=== PATIENT | female | born 1990 | race Caucasian/White ===

== ENCOUNTER 2020-06-20 21:28 | Inpatient (IN) | payer BC, SELFPAY ==
[~2020-06-20] VITALS: Ht 157.5 cm; Wt 154.2 kg
[2020-06-20] MEDS ORDERED: AZITHROMYCIN 500MG/NS 250 ML 250 ML IV ONE (21:45)
[2020-06-20] MEDS ORDERED: DEXAMETHASONE SOD PHOS 10 MG/1 ML VIAL IV ONE (21:45)
[2020-06-20] MEDS ORDERED: ACETAMINOPHEN 325 MG TAB PO ONE (22:00)
[2020-06-20 22:42] LABS: BASOPHILS % 0.2 % (0.0-1.0); HEMATOCRIT 41.6 % (34.2-44.1); HEMOGLOBIN 13.8 g/dL (12.0-16.0); LYMPHOCYTES # (AUTO) 1.1 (1.0-3.2); LYMPHOCYTES % 24.9 % (18.0-39.1); MEAN CORPUSCULAR HEMOGLOBIN 29.9 pg (28-32); MEAN CORPUSCULAR HGB CONC 33.2 g/dL (31-35); MEAN CORPUSCULAR VOLUME 90.2 fL (81-99); MONOCYTES # (AUTO) 0.4 (0.2-0.8); MONOCYTES % 9.4 % (4.4-11.3); NEUTROPHILS # (AUTO) 2.9 (2.1-6.9); NEUTROPHILS % 65.3 % (38.7-80.0); PLATELET COUNT 158 x10e3/uL (140-360); RED BLOOD COUNT 4.61 x10e6/uL (3.6-5.1); RED CELL DISTRIBUTION WIDTH 12.8 % (11.7-14.4)
[2020-06-20 23:09] LABS: ALANINE AMINOTRANSFERASE 158 IU/L (0-55); ALBUMIN 3.6 g/dL (3.5-5.0); ALBUMIN/GLOBULIN RATIO 0.9 (0.8-2.0); ALKALINE PHOSPHATASE 83 IU/L (40-150); ANION GAP 14.6 mmol/L (8-16); BLOOD UREA NITROGEN 9 mg/dL (7-26); BUN/CREATININE RATIO 12 (6-25); CARBON DIOXIDE 28 mmol/L (22-29); CHLORIDE 103 mmol/L (98-107); CREATININE, SERUM 0.74 mg/dL (0.57-1.11); EST GLOMERULAR FILTRATION RATE > 60 ML/MIN (60-); GLUCOSE 104 mg/dL (74-118); POTASSIUM 3.6 mmol/L (3.5-5.1); SODIUM 142 mmol/L (136-145)
[2020-06-20 23:16] LABS: CREATINE KINASE MB 0.5 ng/mL (0-5.0)
[2020-06-21] VITALS (8 sets, daily range): BP systolic 119–149; BP diastolic 70–87
[2020-06-21] MEDS ORDERED: ONDANSETRON HCL INJ 2MG/ML 2ML 2 MG/ML VIAL IV PRN (02:45)
[2020-06-21 05:09] LABS: CLARITY,URINE CLEAR (CLEAR); KETONES,URINE NEGATIVE (NEGATIVE); LEUKOCYTE ESTERASE ,URINE NEGATIVE (NEGATIVE); NITRITE,URINE NEGATIVE (NEGATIVE); PROTEIN,URINE DIPSTICK 2+ (NEGATIVE)
[2020-06-21 05:10] LABS: BACTERIA,URINE MODERATE /HPF; COLOR,URINE AMBER (YELLOW); EPITHELIAL CELLS,URINE FEW /LPF; URINE UROBILINOGEN 1 mg/dL (0.2 - 1); WBC,URINE (MAN) 0-5 /HPF (0-5)
[2020-06-21] MEDS ORDERED: GUAIFENESIN/CODEINE 10 ML CUP PO PRN (07:45)
[2020-06-21] MEDS ORDERED: ZOLPIDEM TARTRATE 5 MG TAB PO PRN (07:45)
[2020-06-21 08:34] LABS: HEMATOCRIT 42.3 % (34.2-44.1); LYMPHOCYTES # (AUTO) 0.7 (1.0-3.2); LYMPHOCYTES % 23.6 % (18.0-39.1); MEAN CORPUSCULAR HEMOGLOBIN 29.9 pg (28-32); MEAN CORPUSCULAR HGB CONC 33.1 g/dL (31-35); MEAN CORPUSCULAR VOLUME 90.2 fL (81-99); MONOCYTES # (AUTO) 0.2 (0.2-0.8); MONOCYTES % 7.2 % (4.4-11.3); NEUTROPHILS % 68.9 % (38.7-80.0); PLATELET COUNT 151 x10e3/uL (140-360); RED BLOOD COUNT 4.69 x10e6/uL (3.6-5.1); RED CELL DISTRIBUTION WIDTH 12.6 % (11.7-14.4)
[2020-06-21 08:52] LABS: ALANINE AMINOTRANSFERASE 143 IU/L (0-55); ALBUMIN 3.3 g/dL (3.5-5.0); ALBUMIN/GLOBULIN RATIO 0.8 (0.8-2.0); ALKALINE PHOSPHATASE 79 IU/L (40-150); ANION GAP 15.9 mmol/L (8-16); BLOOD UREA NITROGEN 9 mg/dL (7-26); BUN/CREATININE RATIO 14 (6-25); CALCIUM 7.9 mg/dL (8.4-10.2); CARBON DIOXIDE 26 mmol/L (22-29); CHLORIDE 104 mmol/L (98-107); CREATININE, SERUM 0.66 mg/dL (0.57-1.11); EST GLOMERULAR FILTRATION RATE > 60 ML/MIN (60-); GLUCOSE 153 mg/dL (74-118); POTASSIUM 3.9 mmol/L (3.5-5.1); SODIUM 142 mmol/L (136-145)
[2020-06-21] MEDS ORDERED: SODIUM CHLORIDE 0.9% 50ML 50 ML ONE (09:10)
[2020-06-21 09:12] LABS: CREATINE KINASE 399 IU/L (29-168)
[2020-06-21] MEDS: AZITHROMYCIN 500MG/NS 250 ML 250 ML IV SCH (09:38)
[2020-06-21] MEDS: ASCORBIC ACID 500 MG TAB PO SCH ×2 (09:38→18:11)
[2020-06-21] MEDS: ENOXAPARIN INJ 80 MG/0.8 ML SYR SC SCH ×2 (09:39→18:11)
[2020-06-21] MEDS: ZINC SULFATE 220 MG CAP PO SCH (09:39)
[2020-06-21] MEDS ORDERED: CEFTRIAXONE SOD 1 GM/50 ML BAG IV SCH (11:15)
[2020-06-21] MEDS ORDERED: HYDRALAZINE HCL 20 MG/ML VIAL IV PRN (11:15)
[2020-06-21] MEDS ORDERED: MELATONIN 5 MG TABLET PO PRN (11:15)
[2020-06-21] MEDS ORDERED: REMDESIVIR 200MG/NS 100ML 200 MG in SODIUM CHLORIDE 0.9% 100 ML 100 ML IV ONE (14:00)
[2020-06-21] MEDS ORDERED: DEXAMETHASONE SOD PHOS 10 MG/1 ML VIAL IV SCH (17:00)
[2020-06-21] MEDS: FAMOTIDINE 20 MG TAB PO SCH (18:11)
[2020-06-21 21:40] LABS: CREATINE KINASE MB 1.6 ng/mL (0-5.0)
[2020-06-22] VITALS (15 sets, daily range): BP systolic 111–137; BP diastolic 71–102
[2020-06-22 05:21] LABS: HEMATOCRIT 40.4 % (34.2-44.1); HEMOGLOBIN 13.4 g/dL (12.0-16.0); LYMPHOCYTES # (AUTO) 0.9 (1.0-3.2); LYMPHOCYTES % 14.8 % (18.0-39.1); MEAN CORPUSCULAR HEMOGLOBIN 29.8 pg (28-32); MEAN CORPUSCULAR HGB CONC 33.2 g/dL (31-35); MONOCYTES # (AUTO) 0.4 (0.2-0.8); MONOCYTES % 7.4 % (4.4-11.3); NEUTROPHILS # (AUTO) 4.6 (2.1-6.9); NEUTROPHILS % 77.5 % (38.7-80.0); PLATELET COUNT 215 x10e3/uL (140-360); RED BLOOD COUNT 4.49 x10e6/uL (3.6-5.1); RED CELL DISTRIBUTION WIDTH 12.7 % (11.7-14.4)
[2020-06-22 05:42] LABS: ALANINE AMINOTRANSFERASE 110 IU/L (0-55); ALBUMIN 3.3 g/dL (3.5-5.0); ALBUMIN/GLOBULIN RATIO 0.9 (0.8-2.0); ALKALINE PHOSPHATASE 76 IU/L (40-150); ANION GAP 13.9 mmol/L (8-16); BLOOD UREA NITROGEN 16 mg/dL (7-26); BUN/CREATININE RATIO 22 (6-25); CALCIUM 8.2 mg/dL (8.4-10.2); CARBON DIOXIDE 29 mmol/L (22-29); CHLORIDE 103 mmol/L (98-107); CREATININE, SERUM 0.74 mg/dL (0.57-1.11); EST GLOMERULAR FILTRATION RATE > 60 ML/MIN (60-); GLUCOSE 148 mg/dL (74-118); POTASSIUM 3.9 mmol/L (3.5-5.1); SODIUM 142 mmol/L (136-145)
[2020-06-22 06:37] LABS: CREATINE KINASE 811 IU/L (29-168)
[2020-06-22] MEDS: FAMOTIDINE 20 MG TAB PO SCH ×2 (07:40→18:10)
[2020-06-22] MEDS: ACETAMINOPHEN 325 MG TAB PO PRN (07:40)
[2020-06-22] MEDS: ZINC SULFATE 220 MG CAP PO SCH (09:58)
[2020-06-22] MEDS: AZITHROMYCIN 500MG/NS 250 ML 250 ML IV SCH (09:58)
[2020-06-22] MEDS: CHOLECALCIFEROL 400 UNIT TAB PO SCH (09:58)
[2020-06-22] MEDS: ASCORBIC ACID 500 MG TAB PO SCH ×2 (09:58→18:10)
[2020-06-22] MEDS: ENOXAPARIN INJ 80 MG/0.8 ML SYR SC SCH ×2 (09:58→18:10)
[2020-06-22] MEDS ORDERED: DEXAMETHASONE SOD PHOS 10 MG/1 ML VIAL IV SCH (17:00)
[2020-06-22] MEDS: DEXAMETHASONE SOD PHOS 10 MG/1 ML VIAL IV SCH (18:10)
[2020-06-22] MEDS ORDERED: DEXMEDETOMIDINE 200MCG/NS 50ML 50 ML IV SCH ×2 (20:45→23:30)
[2020-06-22] MEDS: REMDESIVIR 100MG/NS 100ML 100 MG in SODIUM CHLORIDE 0.9% 100 ML 100 ML IV SCH (20:58)
[2020-06-22] MEDS: DEXMEDETOMIDINE 200MCG/NS 50ML 50 ML IV PRN (23:00)
[2020-06-23] VITALS (25 sets, daily range): BP systolic 91–119; BP diastolic 49–88
[2020-06-23] MEDS: DEXMEDETOMIDINE 200MCG/NS 50ML 50 ML IV PRN ×4 (02:32→21:20)
[2020-06-23 07:02] LABS: BASOPHILS % 0.2 % (0.0-1.0); HEMATOCRIT 39.7 % (34.2-44.1); LYMPHOCYTES # (AUTO) 0.8 (1.0-3.2); LYMPHOCYTES % 15.1 % (18.0-39.1); MEAN CORPUSCULAR HEMOGLOBIN 29.8 pg (28-32); MEAN CORPUSCULAR HGB CONC 32.7 g/dL (31-35); MEAN CORPUSCULAR VOLUME 91.1 fL (81-99); MONOCYTES # (AUTO) 0.5 (0.2-0.8); MONOCYTES % 10.5 % (4.4-11.3); NEUTROPHILS # (AUTO) 3.7 (2.1-6.9); NEUTROPHILS % 73.4 % (38.7-80.0); PLATELET COUNT 223 x10e3/uL (140-360); RED BLOOD COUNT 4.36 x10e6/uL (3.6-5.1); RED CELL DISTRIBUTION WIDTH 12.7 % (11.7-14.4)
[2020-06-23 07:24] LABS: ALANINE AMINOTRANSFERASE 128 IU/L (0-55); ALBUMIN 3.2 g/dL (3.5-5.0); ALBUMIN/GLOBULIN RATIO 0.9 (0.8-2.0); ALKALINE PHOSPHATASE 77 IU/L (40-150); ANION GAP 14.1 mmol/L (8-16); BLOOD UREA NITROGEN 24 mg/dL (7-26); BUN/CREATININE RATIO 33 (6-25); CALCIUM 8.2 mg/dL (8.4-10.2); CARBON DIOXIDE 30 mmol/L (22-29); CHLORIDE 104 mmol/L (98-107); CREATININE, SERUM 0.72 mg/dL (0.57-1.11); EST GLOMERULAR FILTRATION RATE > 60 ML/MIN (60-); GLUCOSE 129 mg/dL (74-118); POTASSIUM 4.1 mmol/L (3.5-5.1); SODIUM 144 mmol/L (136-145)
[2020-06-23] MEDS: CHOLECALCIFEROL 400 UNIT TAB PO SCH (08:57)
[2020-06-23] MEDS: ENOXAPARIN INJ 80 MG/0.8 ML SYR SC SCH ×2 (08:57→18:16)
[2020-06-23] MEDS: ZINC SULFATE 220 MG CAP PO SCH (08:57)
[2020-06-23] MEDS: ASCORBIC ACID 500 MG TAB PO SCH ×2 (08:57→17:00)
[2020-06-23] MEDS: FAMOTIDINE 20 MG TAB PO SCH ×2 (08:57→16:30)
[2020-06-23] MEDS ORDERED: LORAZEPAM INJ 2 MG/ML VIAL IV ONE (12:30)
[2020-06-23] MEDS: AZITHROMYCIN 500MG/NS 250 ML 250 ML IV SCH (12:41)
[2020-06-23] MEDS: DEXAMETHASONE SOD PHOS 10 MG/1 ML VIAL IV SCH (18:16)
[2020-06-23] MEDS: REMDESIVIR 100MG/NS 100ML 100 MG in SODIUM CHLORIDE 0.9% 100 ML 100 ML IV SCH (18:16)
[2020-06-24] VITALS (25 sets, daily range): BP systolic 100–157; BP diastolic 67–96
[2020-06-24 06:14] LABS: BASOPHILS % 0.2 % (0.0-1.0); HEMATOCRIT 39.7 % (34.2-44.1); LYMPHOCYTES # (AUTO) 0.7 (1.0-3.2); LYMPHOCYTES % 10.4 % (18.0-39.1); MEAN CORPUSCULAR HGB CONC 32.7 g/dL (31-35); MEAN CORPUSCULAR VOLUME 91.7 fL (81-99); MONOCYTES # (AUTO) 0.6 (0.2-0.8); MONOCYTES % 8.7 % (4.4-11.3); NEUTROPHILS # (AUTO) 5.2 (2.1-6.9); NEUTROPHILS % 79.3 % (38.7-80.0); PLATELET COUNT 248 x10e3/uL (140-360); RED BLOOD COUNT 4.33 x10e6/uL (3.6-5.1); RED CELL DISTRIBUTION WIDTH 12.4 % (11.7-14.4)
[2020-06-24 06:44] LABS: ALANINE AMINOTRANSFERASE 126 IU/L (0-55); ALBUMIN/GLOBULIN RATIO 0.8 (0.8-2.0); ALKALINE PHOSPHATASE 84 IU/L (40-150); BLOOD UREA NITROGEN 24 mg/dL (7-26); BUN/CREATININE RATIO 35 (6-25); CALCIUM 7.8 mg/dL (8.4-10.2); CARBON DIOXIDE 29 mmol/L (22-29); CHLORIDE 103 mmol/L (98-107); CREATININE, SERUM 0.68 mg/dL (0.57-1.11); EST GLOMERULAR FILTRATION RATE > 60 ML/MIN (60-); GLUCOSE 132 mg/dL (74-118); SODIUM 142 mmol/L (136-145)
[2020-06-24] MEDS: FAMOTIDINE 20 MG TAB PO SCH ×2 (07:30→16:24)
[2020-06-24] MEDS: ASCORBIC ACID 500 MG TAB PO SCH ×2 (07:49→16:24)
[2020-06-24] MEDS: ZINC SULFATE 220 MG CAP PO SCH (07:49)
[2020-06-24] MEDS: CHOLECALCIFEROL 400 UNIT TAB PO SCH (07:49)
[2020-06-24] MEDS: AZITHROMYCIN 500MG/NS 250 ML 250 ML IV SCH (10:35)
[2020-06-24] MEDS: ENOXAPARIN INJ 80 MG/0.8 ML SYR SC SCH ×2 (10:35→18:06)
[2020-06-24] MEDS: DEXAMETHASONE SOD PHOS 10 MG/1 ML VIAL IV SCH (18:06)
[2020-06-24] MEDS: REMDESIVIR 100MG/NS 100ML 100 MG in SODIUM CHLORIDE 0.9% 100 ML 100 ML IV SCH (18:06)
[2020-06-25] VITALS (25 sets, daily range): BP systolic 128–171; BP diastolic 60–84
[2020-06-25] MEDS: FAMOTIDINE 20 MG TAB PO SCH ×2 (07:56→16:54)
[2020-06-25] MEDS: ENOXAPARIN INJ 80 MG/0.8 ML SYR SC SCH ×2 (07:57→20:03)
[2020-06-25] MEDS: ASCORBIC ACID 500 MG TAB PO SCH ×2 (07:57→16:55)
[2020-06-25] MEDS: CHOLECALCIFEROL 400 UNIT TAB PO SCH (07:57)
[2020-06-25] MEDS: ZINC SULFATE 220 MG CAP PO SCH (07:57)
[2020-06-25] MEDS: DEXAMETHASONE SOD PHOS 10 MG/1 ML VIAL IV SCH (16:54)
[2020-06-25] MEDS: REMDESIVIR 100MG/NS 100ML 100 MG in SODIUM CHLORIDE 0.9% 100 ML 100 ML IV SCH (16:54)
[2020-06-25] MEDS: CENTRAL TPN FORMULA 1 BAG IV SCH (20:03)
[2020-06-26] VITALS (20 sets, daily range): BP systolic 100–150; BP diastolic 60–86
[2020-06-26 06:25] LABS: BASOPHILS % 0.1 % (0.0-1.0); EOSINOPHILS % 0.3 % (0.0-6.0); HEMATOCRIT 37.2 % (34.2-44.1); HEMOGLOBIN 12.3 g/dL (12.0-16.0); LYMPHOCYTES # (AUTO) 0.9 (1.0-3.2); LYMPHOCYTES % 7.3 % (18.0-39.1); MEAN CORPUSCULAR HEMOGLOBIN 29.8 pg (28-32); MEAN CORPUSCULAR HGB CONC 33.1 g/dL (31-35); MEAN CORPUSCULAR VOLUME 90.1 fL (81-99); MONOCYTES # (AUTO) 0.5 (0.2-0.8); MONOCYTES % 3.9 % (4.4-11.3); NEUTROPHILS # (AUTO) 10.1 (2.1-6.9); PLATELET COUNT 304 x10e3/uL (140-360); RED BLOOD COUNT 4.13 x10e6/uL (3.6-5.1); RED CELL DISTRIBUTION WIDTH 12.2 % (11.7-14.4)
[2020-06-26 06:51] LABS: ALANINE AMINOTRANSFERASE 66 IU/L (0-55); ALBUMIN 2.6 g/dL (3.5-5.0); ALBUMIN/GLOBULIN RATIO 0.7 (0.8-2.0); ALKALINE PHOSPHATASE 69 IU/L (40-150); ANION GAP 11.7 mmol/L (8-16); BLOOD UREA NITROGEN 22 mg/dL (7-26); BUN/CREATININE RATIO 35 (6-25); CARBON DIOXIDE 30 mmol/L (22-29); CHLORIDE 104 mmol/L (98-107); CREATININE, SERUM 0.62 mg/dL (0.57-1.11); EST GLOMERULAR FILTRATION RATE > 60 ML/MIN (60-); GLUCOSE 170 mg/dL (74-118); POTASSIUM 3.7 mmol/L (3.5-5.1); SODIUM 142 mmol/L (136-145)
[2020-06-26] MEDS: CHOLECALCIFEROL 400 UNIT TAB PO SCH (09:00)
[2020-06-26] MEDS: ASCORBIC ACID 500 MG TAB PO SCH ×2 (09:00→16:01)
[2020-06-26] MEDS: ZINC SULFATE 220 MG CAP PO SCH (09:22)
[2020-06-26] MEDS: ENOXAPARIN INJ 80 MG/0.8 ML SYR SC SCH ×2 (11:00→20:02)
[2020-06-26] MEDS: FAMOTIDINE 20 MG TAB PO SCH ×2 (11:00→15:30)
[2020-06-26] MEDS: DEXAMETHASONE SOD PHOS 10 MG/1 ML VIAL IV SCH (16:01)
[2020-06-26] MEDS: FENTANYL 2000MCG/NS 250 250 ML IV SCH (16:02)
[2020-06-26] MEDS: MIDAZOLAM HCL 5MG/ML 10ML VIAL 100 ML IV SCH (16:03)
[2020-06-26 16:29] LABS: ABG HCO3 30 mmol/L (22-26); ABG PCO2 47 mmHg (35-45); ABG PO2 73 mmHg (80-105); ABG TCO2 31
[2020-06-26] MEDS: ROCURONIUM BROMIDE 1,250 MG in SODIUM CHLORIDE 0.9% 250ML 125 ML IV SCH (20:01)
[2020-06-26] MEDS: CENTRAL TPN FORMULA 1 BAG IV SCH (20:02)
[2020-06-27] VITALS (13 sets, daily range): BP systolic 124–152; BP diastolic 65–79
[2020-06-27] MEDS: FAMOTIDINE 20 MG TAB PO SCH ×2 (07:30→18:45)
[2020-06-27] MEDS: ENOXAPARIN INJ 80 MG/0.8 ML SYR SC SCH ×2 (08:20→20:13)
[2020-06-27] MEDS: ASCORBIC ACID 500 MG TAB PO SCH ×2 (08:21→16:15)
[2020-06-27] MEDS: CHOLECALCIFEROL 400 UNIT TAB PO SCH (08:21)
[2020-06-27] MEDS: ZINC SULFATE 220 MG CAP PO SCH (08:21)
[2020-06-27 08:52] LABS: ABG HCO3 29 mmol/L (22-26); ABG PCO2 42 mmHg (35-45); ABG PH 7.45 (7.35-7.45); ABG PO2 178 mmHg (80-105); ABG TCO2 31
[2020-06-27] MEDS ORDERED: CENTRAL TPN FORMULA 1 BAG IV SCH (12:15)
[2020-06-27] MEDS ORDERED: FENTANYL 2,000 MCG/250 ML BAG ONE (13:01)
[2020-06-27] MEDS ORDERED: MIDAZOLAM HCL 5MG/ML 10ML VIAL 100 ML BAG IV ONE (13:01)
[2020-06-27 17:00] LABS: ABG HCO3 28 mmol/L (22-26); ABG PCO2 39 mmHg (35-45); ABG PH 7.47 (7.35-7.45); ABG PO2 94 mmHg (80-105); ABG TCO2 29
[2020-06-27] MEDS: DEXAMETHASONE SOD PHOS 10 MG/1 ML VIAL IV SCH (18:45)
[2020-06-27] MEDS: ROCURONIUM BROMIDE 1,250 MG in SODIUM CHLORIDE 0.9% 250ML 125 ML IV SCH (20:13)
[2020-06-27] MEDS: MIDAZOLAM HCL 5MG/ML 10ML VIAL 100 ML IV SCH (21:42)
[2020-06-27] MEDS: FENTANYL 2000MCG/NS 250 250 ML IV SCH (21:43)
[2020-06-28] VITALS (14 sets, daily range): BP systolic 127–156; BP diastolic 63–87
[2020-06-28 05:46] LABS: BASOPHILS % 0.3 % (0.0-1.0); EOSINOPHILS # (AUTO) 0.1 (0.0-0.4); EOSINOPHILS % 1.2 % (0.0-6.0); HEMATOCRIT 37.5 % (34.2-44.1); HEMOGLOBIN 12.2 g/dL (12.0-16.0); LYMPHOCYTES # (AUTO) 1.6 (1.0-3.2); MEAN CORPUSCULAR HEMOGLOBIN 29.7 pg (28-32); MEAN CORPUSCULAR HGB CONC 32.5 g/dL (31-35); MEAN CORPUSCULAR VOLUME 91.2 fL (81-99); MONOCYTES # (AUTO) 0.7 (0.2-0.8); MONOCYTES % 6.2 % (4.4-11.3); NEUTROPHILS # (AUTO) 8.2 (2.1-6.9); PLATELET COUNT 364 x10e3/uL (140-360); RED BLOOD COUNT 4.11 x10e6/uL (3.6-5.1); RED CELL DISTRIBUTION WIDTH 12.6 % (11.7-14.4)
[2020-06-28 06:10] LABS: ALANINE AMINOTRANSFERASE 53 IU/L (0-55); ALBUMIN 2.4 g/dL (3.5-5.0); ALBUMIN/GLOBULIN RATIO 0.6 (0.8-2.0); ALKALINE PHOSPHATASE 61 IU/L (40-150); ANION GAP 14.6 mmol/L (8-16); BLOOD UREA NITROGEN 26 mg/dL (7-26); BUN/CREATININE RATIO 42 (6-25); CALCIUM 7.9 mg/dL (8.4-10.2); CARBON DIOXIDE 25 mmol/L (22-29); CHLORIDE 111 mmol/L (98-107); CREATININE, SERUM 0.62 mg/dL (0.57-1.11); EST GLOMERULAR FILTRATION RATE > 60 ML/MIN (60-); GLUCOSE 104 mg/dL (74-118); POTASSIUM 3.6 mmol/L (3.5-5.1); SODIUM 147 mmol/L (136-145)
[2020-06-28] MEDS: CHOLECALCIFEROL 400 UNIT TAB PO SCH (07:57)
[2020-06-28] MEDS: FAMOTIDINE 20 MG TAB PO SCH ×2 (07:57→17:42)
[2020-06-28] MEDS: ENOXAPARIN INJ 80 MG/0.8 ML SYR SC SCH ×2 (07:57→21:02)
[2020-06-28] MEDS: ZINC SULFATE 220 MG CAP PO SCH (07:57)
[2020-06-28] MEDS: ASCORBIC ACID 500 MG TAB PO SCH ×2 (07:57→17:42)
[2020-06-28 09:13] LABS: ABG HCO3 27 mmol/L (22-26); ABG PCO2 46 mmHg (35-45); ABG PH 7.38 (7.35-7.45); ABG PO2 91 mmHg (80-105); ABG TCO2 29
[2020-06-28] MEDS ORDERED: DEXTROSE 50% SYRINGE 50 ML IV PRN (09:15)
[2020-06-28] MEDS: MIDAZOLAM HCL 5MG/ML 10ML VIAL 100 ML IV SCH ×2 (12:30→21:18)
[2020-06-28] MEDS: INSULIN REGULAR, HUMAN 100 UNIT/1 ML 3ML VIAL SQ SCH ×3 (13:08→21:00)
[2020-06-28] MEDS: DEXAMETHASONE SOD PHOS 10 MG/1 ML VIAL IV SCH (17:42)
[2020-06-28] MEDS: ROCURONIUM BROMIDE 1,250 MG in SODIUM CHLORIDE 0.9% 250ML 125 ML IV SCH (18:00)
[2020-06-28] MEDS: FENTANYL 2000MCG/NS 250 250 ML IV SCH (19:10)
[2020-06-28] MEDS ORDERED: VECURONIUM BROMIDE FOR INJ 20 MG VIAL ONE (19:25)
[2020-06-28] MEDS ORDERED: MIDAZOLAM HCL 2 MG/2 ML VIAL ONE (19:25)
[2020-06-28] MEDS ORDERED: ETOMIDATE 2 MG/ML 10 ML INJ IV ONE (19:25)
[2020-06-28] MEDS ORDERED: WATER STERILE 10 ML VIAL ONE (19:25)
[2020-06-29] VITALS (25 sets, daily range): BP systolic 106–152; BP diastolic 56–77
[2020-06-29] MEDS: ACETAMINOPHEN 325 MG TAB PO PRN (00:06)
[2020-06-29] MEDS: FENTANYL 2000MCG/NS 250 250 ML IV SCH ×2 (02:31→22:21)
[2020-06-29] MEDS: MIDAZOLAM HCL 5MG/ML 10ML VIAL 100 ML IV SCH ×2 (02:33→22:22)
[2020-06-29] MEDS: ROCURONIUM BROMIDE 1,250 MG in SODIUM CHLORIDE 0.9% 250ML 125 ML IV SCH (02:35)
[2020-06-29 06:02] LABS: BASOPHILS % 0.1 % (0.0-1.0); EOSINOPHILS % 0.1 % (0.0-6.0); HEMATOCRIT 33.7 % (34.2-44.1); HEMOGLOBIN 10.9 g/dL (12.0-16.0); LYMPHOCYTES # (AUTO) 0.8 (1.0-3.2); LYMPHOCYTES % 5.5 % (18.0-39.1); MEAN CORPUSCULAR HGB CONC 32.3 g/dL (31-35); MEAN CORPUSCULAR VOLUME 92.8 fL (81-99); MONOCYTES % 6.9 % (4.4-11.3); NEUTROPHILS # (AUTO) 11.7 (2.1-6.9); NEUTROPHILS % 84.4 % (38.7-80.0); PLATELET COUNT 322 x10e3/uL (140-360); RED BLOOD COUNT 3.63 x10e6/uL (3.6-5.1); RED CELL DISTRIBUTION WIDTH 12.8 % (11.7-14.4)
[2020-06-29 06:23] LABS: ALANINE AMINOTRANSFERASE 68 IU/L (0-55); ALBUMIN 2.2 g/dL (3.5-5.0); ALBUMIN/GLOBULIN RATIO 0.6 (0.8-2.0); ALKALINE PHOSPHATASE 59 IU/L (40-150); ANION GAP 13.1 mmol/L (8-16); BLOOD UREA NITROGEN 22 mg/dL (7-26); BUN/CREATININE RATIO 37 (6-25); CALCIUM 7.8 mg/dL (8.4-10.2); CARBON DIOXIDE 28 mmol/L (22-29); CHLORIDE 107 mmol/L (98-107); CREATININE, SERUM 0.59 mg/dL (0.57-1.11); EST GLOMERULAR FILTRATION RATE > 60 ML/MIN (60-); GLUCOSE 116 mg/dL (74-118); POTASSIUM 4.1 mmol/L (3.5-5.1); SODIUM 144 mmol/L (136-145)
[2020-06-29] MEDS: INSULIN REGULAR, HUMAN 100 UNIT/1 ML 3ML VIAL SQ SCH ×4 (07:30→21:09)
[2020-06-29] MEDS: FAMOTIDINE 20 MG TAB PO SCH ×2 (07:46→18:03)
[2020-06-29] MEDS: ZINC SULFATE 220 MG CAP PO SCH (07:47)
[2020-06-29] MEDS: ENOXAPARIN INJ 80 MG/0.8 ML SYR SC SCH ×2 (07:47→21:08)
[2020-06-29] MEDS: CHOLECALCIFEROL 400 UNIT TAB PO SCH (07:47)
[2020-06-29] MEDS: ASCORBIC ACID 500 MG TAB PO SCH ×2 (07:47→18:03)
[2020-06-29 10:01] LABS: ABG HCO3 30 mmol/L (22-26); ABG PCO2 56 mmHg (35-45); ABG PH 7.35 (7.35-7.45); ABG PO2 87 mmHg (80-105); ABG TCO2 30
[2020-06-29] MEDS: FUROSEMIDE INJ 10 MG/ML 4 ML VIAL IV SCH ×2 (12:00→21:08)
[2020-06-29] MEDS: ALBUMIN 25% 25GM 100ML 0.25 GM/ML BTL IV SCH ×2 (12:00→21:08)
[2020-06-29] MEDS: DEXAMETHASONE SOD PHOS 10 MG/1 ML VIAL IV SCH (16:46)
[2020-06-30] VITALS (27 sets, daily range): BP systolic 85–165; BP diastolic 40–86
[2020-06-30] MEDS: FENTANYL 2000MCG/NS 250 250 ML IV SCH (04:39)
[2020-06-30 04:40] LABS: BASOPHILS % 0.2 % (0.0-1.0); EOSINOPHILS % 0.1 % (0.0-6.0); HEMATOCRIT 33.3 % (34.2-44.1); LYMPHOCYTES % 8.2 % (18.0-39.1); MEAN CORPUSCULAR HEMOGLOBIN 29.9 pg (28-32); MEAN CORPUSCULAR VOLUME 90.5 fL (81-99); MONOCYTES # (AUTO) 1.1 (0.2-0.8); MONOCYTES % 8.9 % (4.4-11.3); NEUTROPHILS # (AUTO) 9.2 (2.1-6.9); NEUTROPHILS % 76.3 % (38.7-80.0); PLATELET COUNT 286 x10e3/uL (140-360); RED BLOOD COUNT 3.68 x10e6/uL (3.6-5.1); RED CELL DISTRIBUTION WIDTH 12.3 % (11.7-14.4)
[2020-06-30 04:59] LABS: ALANINE AMINOTRANSFERASE 87 IU/L (0-55); ALBUMIN 3.3 g/dL (3.5-5.0); ALKALINE PHOSPHATASE 59 IU/L (40-150); BLOOD UREA NITROGEN 24 mg/dL (7-26); BUN/CREATININE RATIO 38 (6-25); CALCIUM 8.6 mg/dL (8.4-10.2); CARBON DIOXIDE 33 mmol/L (22-29); CHLORIDE 99 mmol/L (98-107); CREATININE, SERUM 0.64 mg/dL (0.57-1.11); EST GLOMERULAR FILTRATION RATE > 60 ML/MIN (60-); GLUCOSE 109 mg/dL (74-118); SODIUM 141 mmol/L (136-145)
[2020-06-30] MEDS: ALBUMIN 25% 25GM 100ML 0.25 GM/ML BTL IV SCH (05:55)
[2020-06-30] MEDS: FAMOTIDINE 20 MG TAB PO SCH ×2 (07:30→17:17)
[2020-06-30] MEDS: INSULIN REGULAR, HUMAN 100 UNIT/1 ML 3ML VIAL SQ SCH ×4 (07:30→20:08)
[2020-06-30 08:15] LABS: ABG HCO3 36 mmol/L (22-26); ABG PCO2 58 mmHg (35-45); ABG PO2 79 mmHg (80-105); ABG TCO2 38
[2020-06-30 08:37] LABS: BAND NEUTROPHILS % (MANUAL) 1 %; EOSINOPHILS % (MANUAL) 1 % (0-7); LYMPHOCYTES % (MANUAL) 9 % (19-48); METAMYELOCYTES % (MANUAL) 3 % (0-0); NEUTROPHILS % (MANUAL) 86 % (40-74)
[2020-06-30] MEDS: ZINC SULFATE 220 MG CAP PO SCH (09:00)
[2020-06-30] MEDS: ENOXAPARIN INJ 80 MG/0.8 ML SYR SC SCH ×2 (09:00→20:06)
[2020-06-30] MEDS: FUROSEMIDE INJ 10 MG/ML 4 ML VIAL IV SCH ×2 (09:00→20:06)
[2020-06-30] MEDS: ASCORBIC ACID 500 MG TAB PO SCH ×2 (09:00→17:17)
[2020-06-30] MEDS: CHOLECALCIFEROL 400 UNIT TAB PO SCH (09:00)
[2020-06-30] MEDS ORDERED: FENTANYL 2,000 MCG/250 ML BAG ONE (12:44)
[2020-06-30] MEDS ORDERED: MIDAZOLAM HCL 5MG/ML 10ML VIAL 100 ML BAG IV ONE (12:44)
[2020-06-30] MEDS: ROCURONIUM BROMIDE 1,250 MG in SODIUM CHLORIDE 0.9% 250ML 125 ML IV SCH (19:48)
[2020-07-01] VITALS (25 sets, daily range): BP systolic 102–158; BP diastolic 53–74
[2020-07-01 06:03] LABS: BASOPHILS % 0.1 % (0.0-1.0); EOSINOPHILS % 0.3 % (0.0-6.0); HEMATOCRIT 31.7 % (34.2-44.1); HEMOGLOBIN 10.6 g/dL (12.0-16.0); LYMPHOCYTES # (AUTO) 1.3 (1.0-3.2); LYMPHOCYTES % 9.3 % (18.0-39.1); MEAN CORPUSCULAR HEMOGLOBIN 30.3 pg (28-32); MEAN CORPUSCULAR HGB CONC 33.4 g/dL (31-35); MEAN CORPUSCULAR VOLUME 90.6 fL (81-99); MONOCYTES # (AUTO) 1.2 (0.2-0.8); MONOCYTES % 8.6 % (4.4-11.3); NEUTROPHILS # (AUTO) 10.5 (2.1-6.9); NEUTROPHILS % 77.5 % (38.7-80.0); PLATELET COUNT 304 x10e3/uL (140-360); RED CELL DISTRIBUTION WIDTH 12.2 % (11.7-14.4)
[2020-07-01 06:29] LABS: ALANINE AMINOTRANSFERASE 83 IU/L (0-55); ALBUMIN 3.1 g/dL (3.5-5.0); ALBUMIN/GLOBULIN RATIO 0.9 (0.8-2.0); ALKALINE PHOSPHATASE 59 IU/L (40-150); ANION GAP 14.9 mmol/L (8-16); BLOOD UREA NITROGEN 33 mg/dL (7-26); BUN/CREATININE RATIO 52 (6-25); CALCIUM 8.6 mg/dL (8.4-10.2); CARBON DIOXIDE 34 mmol/L (22-29); CHLORIDE 96 mmol/L (98-107); CREATININE, SERUM 0.64 mg/dL (0.57-1.11); EST GLOMERULAR FILTRATION RATE > 60 ML/MIN (60-); GLUCOSE 120 mg/dL (74-118); POTASSIUM 3.9 mmol/L (3.5-5.1); SODIUM 141 mmol/L (136-145)
[2020-07-01] MEDS: INSULIN REGULAR, HUMAN 100 UNIT/1 ML 3ML VIAL SQ SCH ×4 (07:30→20:17)
[2020-07-01 07:42] LABS: ABG HCO3 36 mmol/L (22-26); ABG PCO2 54 mmHg (35-45); ABG PH 7.43 (7.35-7.45); ABG PO2 78 mmHg (80-105); ABG TCO2 37
[2020-07-01] MEDS: FENTANYL 2000MCG/NS 250 250 ML IV SCH ×2 (08:38→14:44)
[2020-07-01] MEDS: ROCURONIUM BROMIDE 1,250 MG in SODIUM CHLORIDE 0.9% 250ML 125 ML IV SCH (08:38)
[2020-07-01] MEDS: FAMOTIDINE 20 MG TAB PO SCH ×2 (09:58→17:03)
[2020-07-01] MEDS: ASCORBIC ACID 500 MG TAB PO SCH ×2 (09:58→17:03)
[2020-07-01] MEDS: ZINC SULFATE 220 MG CAP PO SCH (09:58)
[2020-07-01] MEDS: CHOLECALCIFEROL 400 UNIT TAB PO SCH (09:58)
[2020-07-01] MEDS: ENOXAPARIN INJ 80 MG/0.8 ML SYR SC SCH ×2 (09:58→20:17)
[2020-07-01] MEDS: MIDAZOLAM HCL 5MG/ML 10ML VIAL 100 ML IV SCH ×2 (10:17→14:45)
[2020-07-02] VITALS (26 sets, daily range): BP systolic 95–171; BP diastolic 51–75
[2020-07-02 05:57] LABS: BASOPHILS % 0.3 % (0.0-1.0); EOSINOPHILS # (AUTO) 0.2 (0.0-0.4); EOSINOPHILS % 1.4 % (0.0-6.0); HEMATOCRIT 35.4 % (34.2-44.1); HEMOGLOBIN 11.3 g/dL (12.0-16.0); LYMPHOCYTES # (AUTO) 1.4 (1.0-3.2); LYMPHOCYTES % 9.3 % (18.0-39.1); MEAN CORPUSCULAR HEMOGLOBIN 29.6 pg (28-32); MEAN CORPUSCULAR HGB CONC 31.9 g/dL (31-35); MEAN CORPUSCULAR VOLUME 92.7 fL (81-99); MONOCYTES # (AUTO) 1.3 (0.2-0.8); MONOCYTES % 8.6 % (4.4-11.3); NEUTROPHILS # (AUTO) 11.6 (2.1-6.9); NEUTROPHILS % 76.1 % (38.7-80.0); PLATELET COUNT 306 x10e3/uL (140-360); RED BLOOD COUNT 3.82 x10e6/uL (3.6-5.1)
[2020-07-02] MEDS: ACETAMINOPHEN 325 MG TAB PO PRN ×2 (06:01→15:33)
[2020-07-02 06:21] LABS: ALANINE AMINOTRANSFERASE 110 IU/L (0-55); ALBUMIN 2.9 g/dL (3.5-5.0); ALBUMIN/GLOBULIN RATIO 0.8 (0.8-2.0); ALKALINE PHOSPHATASE 69 IU/L (40-150); ANION GAP 10.8 mmol/L (8-16); BLOOD UREA NITROGEN 28 mg/dL (7-26); BUN/CREATININE RATIO 45 (6-25); CALCIUM 8.5 mg/dL (8.4-10.2); CARBON DIOXIDE 33 mmol/L (22-29); CHLORIDE 99 mmol/L (98-107); CREATININE, SERUM 0.62 mg/dL (0.57-1.11); EST GLOMERULAR FILTRATION RATE > 60 ML/MIN (60-); GLUCOSE 125 mg/dL (74-118); POTASSIUM 3.8 mmol/L (3.5-5.1); SODIUM 139 mmol/L (136-145)
[2020-07-02] MEDS: FAMOTIDINE 20 MG TAB PO SCH ×2 (07:55→17:48)
[2020-07-02] MEDS: CHOLECALCIFEROL 400 UNIT TAB PO SCH (07:56)
[2020-07-02] MEDS: ASCORBIC ACID 500 MG TAB PO SCH ×2 (07:56→17:53)
[2020-07-02] MEDS: ENOXAPARIN INJ 80 MG/0.8 ML SYR SC SCH ×2 (07:57→21:10)
[2020-07-02] MEDS: ZINC SULFATE 220 MG CAP PO SCH (07:57)
[2020-07-02] MEDS: INSULIN REGULAR, HUMAN 100 UNIT/1 ML 3ML VIAL SQ SCH ×4 (07:57→21:00)
[2020-07-02 08:06] LABS: ABG HCO3 34 mmol/L (22-26); ABG PCO2 61 mmHg (35-45); ABG PH 7.35 (7.35-7.45); ABG PO2 65 mmHg (80-105); ABG TCO2 36
[2020-07-02] MEDS: ROCURONIUM BROMIDE 1,250 MG in SODIUM CHLORIDE 0.9% 250ML 125 ML IV SCH (08:42)
[2020-07-02] MEDS: FENTANYL 2000MCG/NS 250 250 ML IV SCH ×2 (10:57→20:00)
[2020-07-02] MEDS ORDERED: VANCOMYCIN 1GM/NS 250 ML 250 ML IV ONE (12:00)
[2020-07-02] MEDS ORDERED: MIDAZOLAM HCL 5MG/ML 10ML VIAL 100 ML BAG IV ONE (13:22)
[2020-07-02] MEDS ORDERED: FENTANYL 2,000 MCG/250 ML BAG ONE (13:22)
[2020-07-02] MEDS: MEROPENEM 1GM 100 ML IV SCH ×2 (15:29→21:10)
[2020-07-02] MEDS: MIDAZOLAM HCL 5MG/ML 10ML VIAL 100 ML IV SCH ×2 (17:54→19:30)
[2020-07-02] MEDS ORDERED: ACETAMINOPHEN 1000 MG/100 ML 100 ML IV ONE (20:25)
[2020-07-03] VITALS (16 sets, daily range): BP systolic 104–149; BP diastolic 54–78
[2020-07-03] MEDS: MIDAZOLAM HCL 5MG/ML 10ML VIAL 100 ML IV SCH ×4 (02:30→18:25)
[2020-07-03] MEDS: FENTANYL 2000MCG/NS 250 250 ML IV SCH ×3 (03:30→18:25)
[2020-07-03] MEDS ORDERED: ACETAMINOPHEN 1000 MG/100 ML 100 ML IV ONE (03:36)
[2020-07-03 04:28] LABS: BASOPHILS % 0.2 % (0.0-1.0); EOSINOPHILS # (AUTO) 0.2 (0.0-0.4); EOSINOPHILS % 1.1 % (0.0-6.0); HEMATOCRIT 32.7 % (34.2-44.1); HEMOGLOBIN 10.6 g/dL (12.0-16.0); LYMPHOCYTES # (AUTO) 1.2 (1.0-3.2); LYMPHOCYTES % 7.9 % (18.0-39.1); MEAN CORPUSCULAR HEMOGLOBIN 30.2 pg (28-32); MEAN CORPUSCULAR HGB CONC 32.4 g/dL (31-35); MEAN CORPUSCULAR VOLUME 93.2 fL (81-99); MONOCYTES # (AUTO) 1.2 (0.2-0.8); MONOCYTES % 7.7 % (4.4-11.3); NEUTROPHILS # (AUTO) 12.5 (2.1-6.9); NEUTROPHILS % 79.5 % (38.7-80.0); PLATELET COUNT 300 x10e3/uL (140-360); RED BLOOD COUNT 3.51 x10e6/uL (3.6-5.1); RED CELL DISTRIBUTION WIDTH 13.1 % (11.7-14.4)
[2020-07-03 04:52] LABS: ALANINE AMINOTRANSFERASE 120 IU/L (0-55); ALBUMIN 2.5 g/dL (3.5-5.0); ALBUMIN/GLOBULIN RATIO 0.7 (0.8-2.0); ALKALINE PHOSPHATASE 72 IU/L (40-150); ANION GAP 13.3 mmol/L (8-16); BLOOD UREA NITROGEN 17 mg/dL (7-26); BUN/CREATININE RATIO 28 (6-25); CALCIUM 8.1 mg/dL (8.4-10.2); CARBON DIOXIDE 31 mmol/L (22-29); CHLORIDE 99 mmol/L (98-107); CREATININE, SERUM 0.61 mg/dL (0.57-1.11); EST GLOMERULAR FILTRATION RATE > 60 ML/MIN (60-); GLUCOSE 127 mg/dL (74-118); MAGNESIUM 2.1 MG/DL (1.3-2.1); PHOSPHORUS 2.9 MG/DL (2.3-4.7); POTASSIUM 4.3 mmol/L (3.5-5.1); SODIUM 139 mmol/L (136-145)
[2020-07-03] MEDS: MEROPENEM 1GM 100 ML IV SCH ×3 (05:12→21:27)
[2020-07-03] MEDS: INSULIN REGULAR, HUMAN 100 UNIT/1 ML 3ML VIAL SQ SCH ×4 (07:44→21:00)
[2020-07-03] MEDS: FAMOTIDINE 20 MG TAB PO SCH ×2 (07:52→17:01)
[2020-07-03 07:53] LABS: ABG HCO3 34 mmol/L (22-26); ABG PCO2 62 mmHg (35-45); ABG PH 7.35 (7.35-7.45); ABG PO2 62 mmHg (80-105); ABG TCO2 36
[2020-07-03] MEDS: FUROSEMIDE INJ 10 MG/ML 4 ML VIAL IV SCH ×2 (07:59→21:26)
[2020-07-03] MEDS: CHOLECALCIFEROL 400 UNIT TAB PO SCH (07:59)
[2020-07-03] MEDS: ASCORBIC ACID 500 MG TAB PO SCH ×2 (07:59→17:01)
[2020-07-03] MEDS: ZINC SULFATE 220 MG CAP PO SCH (07:59)
[2020-07-03] MEDS: ENOXAPARIN INJ 80 MG/0.8 ML SYR SC SCH ×2 (07:59→21:26)
[2020-07-03] MEDS: ROCURONIUM BROMIDE 1,250 MG in SODIUM CHLORIDE 0.9% 250ML 125 ML IV SCH ×2 (10:46→22:20)
[2020-07-03] MEDS: ACETAMINOPHEN 325 MG TAB PO PRN (12:22)
[2020-07-03] MEDS: IBUPROFEN 100 MG/5 ML SUSP PO PRN (14:44)
[2020-07-04] VITALS (25 sets, daily range): BP systolic 98–160; BP diastolic 57–82
[2020-07-04] MEDS: FENTANYL 2000MCG/NS 250 250 ML IV SCH ×4 (03:00→20:20)
[2020-07-04] MEDS: MIDAZOLAM HCL 5MG/ML 10ML VIAL 100 ML IV SCH ×4 (03:00→20:22)
[2020-07-04] MEDS: ACETAMINOPHEN 325 MG TAB PO PRN (03:19)
[2020-07-04 05:53] LABS: BASOPHILS % 0.2 % (0.0-1.0); EOSINOPHILS # (AUTO) 0.1 (0.0-0.4); EOSINOPHILS % 0.3 % (0.0-6.0); HEMATOCRIT 33.2 % (34.2-44.1); HEMOGLOBIN 10.7 g/dL (12.0-16.0); LYMPHOCYTES % 5.1 % (18.0-39.1); MEAN CORPUSCULAR HEMOGLOBIN 29.7 pg (28-32); MEAN CORPUSCULAR HGB CONC 32.2 g/dL (31-35); MEAN CORPUSCULAR VOLUME 92.2 fL (81-99); MONOCYTES # (AUTO) 1.3 (0.2-0.8); MONOCYTES % 6.8 % (4.4-11.3); NEUTROPHILS # (AUTO) 15.7 (2.1-6.9); NEUTROPHILS % 84.5 % (38.7-80.0); PLATELET COUNT 350 x10e3/uL (140-360); RED CELL DISTRIBUTION WIDTH 12.9 % (11.7-14.4)
[2020-07-04] MEDS: MEROPENEM 1GM 100 ML IV SCH ×3 (06:01→20:21)
[2020-07-04 06:16] LABS: ALANINE AMINOTRANSFERASE 81 IU/L (0-55); ALBUMIN 2.4 g/dL (3.5-5.0); ALBUMIN/GLOBULIN RATIO 0.6 (0.8-2.0); ALKALINE PHOSPHATASE 69 IU/L (40-150); ANION GAP 16.5 mmol/L (8-16); BLOOD UREA NITROGEN 20 mg/dL (7-26); BUN/CREATININE RATIO 31 (6-25); CALCIUM 8.2 mg/dL (8.4-10.2); CARBON DIOXIDE 34 mmol/L (22-29); CHLORIDE 96 mmol/L (98-107); CREATININE, SERUM 0.64 mg/dL (0.57-1.11); EST GLOMERULAR FILTRATION RATE > 60 ML/MIN (60-); GLUCOSE 133 mg/dL (74-118); POTASSIUM 4.5 mmol/L (3.5-5.1); SODIUM 142 mmol/L (136-145)
[2020-07-04 07:16] LABS: ABG HCO3 37 mmol/L (22-26); ABG PCO2 52 mmHg (35-45); ABG PH 7.46 (7.35-7.45); ABG PO2 99 mmHg (80-105)
[2020-07-04 07:17] LABS: ABG TCO2 39
[2020-07-04] MEDS: ASCORBIC ACID 500 MG TAB PO SCH ×2 (07:31→17:38)
[2020-07-04] MEDS: FAMOTIDINE 20 MG TAB PO SCH ×2 (07:31→17:37)
[2020-07-04] MEDS: INSULIN REGULAR, HUMAN 100 UNIT/1 ML 3ML VIAL SQ SCH ×4 (07:31→20:21)
[2020-07-04] MEDS: ENOXAPARIN INJ 80 MG/0.8 ML SYR SC SCH ×2 (07:31→20:20)
[2020-07-04] MEDS: CHOLECALCIFEROL 400 UNIT TAB PO SCH (07:31)
[2020-07-04] MEDS: ZINC SULFATE 220 MG CAP PO SCH (07:31)
[2020-07-04] MEDS: ROCURONIUM BROMIDE 1,250 MG in SODIUM CHLORIDE 0.9% 250ML 125 ML IV SCH ×2 (10:28→20:21)
[2020-07-04] MEDS ORDERED: LACTULOSE SYRUP 20 GM/30 ML UDC PO NR (11:30)
[2020-07-04] MEDS: LACTULOSE SYRUP 20 GM/30 ML UDC PO PRN (17:38)
[2020-07-04 18:09] LABS: ABG HCO3 36 mmol/L (22-26); ABG PCO2 52 mmHg (35-45); ABG PH 7.45 (7.35-7.45); ABG PO2 72 mmHg (80-105); ABG TCO2 37
[2020-07-04] MEDS ORDERED: ROCURONIUM BROMIDE 250 ML IV ONE (19:52)
[2020-07-05] VITALS (16 sets, daily range): BP systolic 109–155; BP diastolic 62–82
[2020-07-05] MEDS: FENTANYL 2000MCG/NS 250 250 ML IV SCH ×3 (03:19→16:38)
[2020-07-05] MEDS: MIDAZOLAM HCL 5MG/ML 10ML VIAL 100 ML IV SCH ×4 (03:20→16:39)
[2020-07-05 03:40] LABS: BASOPHILS # (AUTO) 0.1 (0.0-0.1); BASOPHILS % 0.4 % (0.0-1.0); EOSINOPHILS # (AUTO) 0.2 (0.0-0.4); HEMATOCRIT 35.5 % (34.2-44.1); HEMOGLOBIN 11.4 g/dL (12.0-16.0); LYMPHOCYTES # (AUTO) 1.5 (1.0-3.2); LYMPHOCYTES % 8.2 % (18.0-39.1); MEAN CORPUSCULAR HEMOGLOBIN 29.9 pg (28-32); MEAN CORPUSCULAR HGB CONC 32.1 g/dL (31-35); MEAN CORPUSCULAR VOLUME 93.2 fL (81-99); MONOCYTES # (AUTO) 1.9 (0.2-0.8); MONOCYTES % 10.3 % (4.4-11.3); NEUTROPHILS # (AUTO) 14.4 (2.1-6.9); NEUTROPHILS % 77.5 % (38.7-80.0); PLATELET COUNT 411 x10e3/uL (140-360); RED BLOOD COUNT 3.81 x10e6/uL (3.6-5.1); RED CELL DISTRIBUTION WIDTH 13.2 % (11.7-14.4)
[2020-07-05 04:04] LABS: ALANINE AMINOTRANSFERASE 67 IU/L (0-55); ALBUMIN 2.5 g/dL (3.5-5.0); ALBUMIN/GLOBULIN RATIO 0.6 (0.8-2.0); ALKALINE PHOSPHATASE 71 IU/L (40-150); ANION GAP 15.1 mmol/L (8-16); BLOOD UREA NITROGEN 23 mg/dL (7-26); BUN/CREATININE RATIO 39 (6-25); CALCIUM 8.4 mg/dL (8.4-10.2); CARBON DIOXIDE 33 mmol/L (22-29); CHLORIDE 98 mmol/L (98-107); CREATININE, SERUM 0.59 mg/dL (0.57-1.11); EST GLOMERULAR FILTRATION RATE > 60 ML/MIN (60-); GLUCOSE 132 mg/dL (74-118); POTASSIUM 4.1 mmol/L (3.5-5.1); SODIUM 142 mmol/L (136-145)
[2020-07-05] MEDS: MEROPENEM 1GM 100 ML IV SCH ×3 (06:21→21:22)
[2020-07-05 07:58] LABS: ABG HCO3 36 mmol/L (22-26); ABG PCO2 58 mmHg (35-45); ABG PO2 89 mmHg (80-105); ABG TCO2 38
[2020-07-05] MEDS: INSULIN REGULAR, HUMAN 100 UNIT/1 ML 3ML VIAL SQ SCH ×4 (08:11→21:20)
[2020-07-05] MEDS: FAMOTIDINE 20 MG TAB PO SCH ×2 (08:11→16:35)
[2020-07-05] MEDS: ZINC SULFATE 220 MG CAP PO SCH (08:35)
[2020-07-05] MEDS: ENOXAPARIN INJ 80 MG/0.8 ML SYR SC SCH ×2 (08:35→21:19)
[2020-07-05] MEDS: CHOLECALCIFEROL 400 UNIT TAB PO SCH (08:35)
[2020-07-05] MEDS: ASCORBIC ACID 500 MG TAB PO SCH ×2 (08:35→16:35)
[2020-07-05] MEDS: DOCUSATE SODIUM LIQD 100 MG/10 ML UDC NG SCH (08:35)
[2020-07-05] MEDS: PROPOFOL IV EMULSION 10MG/ML 100 ML IV SCH ×4 (13:40→23:15)
[2020-07-05] MEDS ORDERED: SUCCINYLCHOLINE 200 MG/10 ML SYR IV STA (15:29)
[2020-07-05] MEDS: ACETAMINOPHEN 325 MG TAB PO PRN (21:10)
[2020-07-05] MEDS: ALTEPLASE RECOMBINANT 2 MG/2 ML VIAL IV PRN (23:00)
[2020-07-06] VITALS (27 sets, daily range): BP systolic 101–156; BP diastolic 59–80
[2020-07-06] MEDS: ROCURONIUM BROMIDE 1,250 MG in SODIUM CHLORIDE 0.9% 250ML 125 ML IV SCH (00:15)
[2020-07-06 00:33] LABS: ABG PCO2 57 mmHg (35-45); ABG PH 7.41 (7.35-7.45); ABG PO2 57 mmHg (80-105); ABG TCO2 37
[2020-07-06 00:34] LABS: ABG HCO3 36 mmol/L (22-26)
[2020-07-06] MEDS: PROPOFOL IV EMULSION 10MG/ML 100 ML IV SCH ×6 (02:10→23:38)
[2020-07-06] MEDS: MIDAZOLAM HCL 5MG/ML 10ML VIAL 100 ML IV SCH ×4 (05:00→20:50)
[2020-07-06] MEDS: MEROPENEM 1GM 100 ML IV SCH ×3 (05:36→21:56)
[2020-07-06] MEDS: FENTANYL 2000MCG/NS 250 250 ML IV SCH ×3 (06:00→20:50)
[2020-07-06 06:28] LABS: BASOPHILS # (AUTO) 0.1 (0.0-0.1); BASOPHILS % 0.3 % (0.0-1.0); EOSINOPHILS # (AUTO) 0.3 (0.0-0.4); EOSINOPHILS % 1.6 % (0.0-6.0); HEMATOCRIT 33.8 % (34.2-44.1); HEMOGLOBIN 10.7 g/dL (12.0-16.0); LYMPHOCYTES # (AUTO) 2.2 (1.0-3.2); LYMPHOCYTES % 11.4 % (18.0-39.1); MEAN CORPUSCULAR HEMOGLOBIN 30.2 pg (28-32); MEAN CORPUSCULAR HGB CONC 31.7 g/dL (31-35); MEAN CORPUSCULAR VOLUME 95.5 fL (81-99); MONOCYTES # (AUTO) 2.1 (0.2-0.8); MONOCYTES % 10.9 % (4.4-11.3); NEUTROPHILS # (AUTO) 13.7 (2.1-6.9); NEUTROPHILS % 71.9 % (38.7-80.0); PLATELET COUNT 430 x10e3/uL (140-360); RED BLOOD COUNT 3.54 x10e6/uL (3.6-5.1); RED CELL DISTRIBUTION WIDTH 13.8 % (11.7-14.4)
[2020-07-06 06:50] LABS: ALANINE AMINOTRANSFERASE 50 IU/L (0-55); ALBUMIN 2.4 g/dL (3.5-5.0); ALBUMIN/GLOBULIN RATIO 0.6 (0.8-2.0); ALKALINE PHOSPHATASE 71 IU/L (40-150); ANION GAP 14.1 mmol/L (8-16); BLOOD UREA NITROGEN 23 mg/dL (7-26); BUN/CREATININE RATIO 38 (6-25); CALCIUM 8.5 mg/dL (8.4-10.2); CARBON DIOXIDE 33 mmol/L (22-29); CHLORIDE 100 mmol/L (98-107); EST GLOMERULAR FILTRATION RATE > 60 ML/MIN (60-); GLUCOSE 109 mg/dL (74-118); POTASSIUM 4.1 mmol/L (3.5-5.1); SODIUM 143 mmol/L (136-145)
[2020-07-06] MEDS: INSULIN REGULAR, HUMAN 100 UNIT/1 ML 3ML VIAL SQ SCH ×4 (07:30→21:00)
[2020-07-06] MEDS: FAMOTIDINE 20 MG TAB PO SCH ×2 (07:50→17:00)
[2020-07-06 07:52] LABS: EOSINOPHILS % (MANUAL) 2 % (0-7); LYMPHOCYTES % (MANUAL) 9 % (19-48); MONOCYTES % (MANUAL) 16 % (3.4-9.0); MYELOCYTES % (MANUAL) 1 % (0-0); NEUTROPHILS % (MANUAL) 72 % (40-74); PLATELET ESTIMATE SLIGHTLY INCREASED
[2020-07-06 07:53] LABS: RBC MORPHOLOGY COMMENT NORMAL
[2020-07-06 07:54] LABS: PLATELET MORPHOLOGY COMMENT RARE EDTA CLUMPING; POIKILOCYTOSIS SLIGHT
[2020-07-06] MEDS: IBUPROFEN 100 MG/5 ML SUSP PO PRN (08:30)
[2020-07-06] MEDS: ASCORBIC ACID 500 MG TAB PO SCH ×2 (08:33→17:00)
[2020-07-06] MEDS: DOCUSATE SODIUM LIQD 100 MG/10 ML UDC NG SCH (08:33)
[2020-07-06] MEDS: ENOXAPARIN INJ 80 MG/0.8 ML SYR SC SCH ×2 (08:33→20:50)
[2020-07-06] MEDS: CHOLECALCIFEROL 400 UNIT TAB PO SCH (08:33)
[2020-07-06] MEDS: ZINC SULFATE 220 MG CAP PO SCH (08:33)
[2020-07-06 09:56] LABS: ABG HCO3 34 mmol/L (22-26); ABG PCO2 58 mmHg (35-45); ABG PH 7.38 (7.35-7.45); ABG PO2 76 mmHg (80-105); ABG TCO2 36
[2020-07-06] MEDS ORDERED: SUCCINYLCHOLINE CHLORIDE 20 MG/ML 10ML VIAL ONE (12:54)
[2020-07-06] MEDS: ACETAMINOPHEN 325 MG TAB PO PRN (18:00)
[2020-07-07] VITALS (30 sets, daily range): BP systolic 95–157; BP diastolic 51–76
[2020-07-07] MEDS: PROPOFOL IV EMULSION 10MG/ML 100 ML IV SCH ×5 (02:35→22:50)
[2020-07-07] MEDS: ROCURONIUM BROMIDE 1,250 MG in SODIUM CHLORIDE 0.9% 250ML 125 ML IV SCH ×2 (02:35→18:28)
[2020-07-07] MEDS: FENTANYL 2000MCG/NS 250 250 ML IV SCH ×2 (04:04→21:23)
[2020-07-07] MEDS: MEROPENEM 1GM 100 ML IV SCH ×3 (05:28→20:43)
[2020-07-07] MEDS: MIDAZOLAM HCL 5MG/ML 10ML VIAL 100 ML IV SCH (05:32)
[2020-07-07 05:55] LABS: BASOPHILS % 0.3 % (0.0-1.0); EOSINOPHILS # (AUTO) 0.3 (0.0-0.4); EOSINOPHILS % 2.1 % (0.0-6.0); HEMATOCRIT 29.7 % (34.2-44.1); HEMOGLOBIN 9.6 g/dL (12.0-16.0); LYMPHOCYTES # (AUTO) 1.4 (1.0-3.2); LYMPHOCYTES % 9.8 % (18.0-39.1); MEAN CORPUSCULAR HEMOGLOBIN 30.3 pg (28-32); MEAN CORPUSCULAR HGB CONC 32.3 g/dL (31-35); MEAN CORPUSCULAR VOLUME 93.7 fL (81-99); MONOCYTES # (AUTO) 1.5 (0.2-0.8); NEUTROPHILS % 72.6 % (38.7-80.0); PLATELET COUNT 377 x10e3/uL (140-360); RED BLOOD COUNT 3.17 x10e6/uL (3.6-5.1); RED CELL DISTRIBUTION WIDTH 13.6 % (11.7-14.4)
[2020-07-07] MEDS: ACETAMINOPHEN 325 MG TAB PO PRN ×3 (05:55→23:11)
[2020-07-07 06:21] LABS: ALANINE AMINOTRANSFERASE 37 IU/L (0-55); ALBUMIN/GLOBULIN RATIO 0.5 (0.8-2.0); ALKALINE PHOSPHATASE 58 IU/L (40-150); ANION GAP 13.7 mmol/L (8-16); BLOOD UREA NITROGEN 20 mg/dL (7-26); BUN/CREATININE RATIO 40 (6-25); CARBON DIOXIDE 31 mmol/L (22-29); CHLORIDE 101 mmol/L (98-107); EST GLOMERULAR FILTRATION RATE > 60 ML/MIN (60-); GLUCOSE 117 mg/dL (74-118); POTASSIUM 3.7 mmol/L (3.5-5.1); SODIUM 142 mmol/L (136-145)
[2020-07-07] MEDS: INSULIN REGULAR, HUMAN 100 UNIT/1 ML 3ML VIAL SQ SCH ×4 (07:30→21:18)
[2020-07-07] MEDS: FAMOTIDINE 20 MG TAB PO SCH ×2 (08:02→16:57)
[2020-07-07 08:15] LABS: ABG PCO2 60 mmHg (35-45); ABG PH 7.36 (7.35-7.45); ABG PO2 112 mmHg (80-105)
[2020-07-07 08:16] LABS: ABG HCO3 34 mmol/L (22-26); ABG TCO2 36
[2020-07-07] MEDS ORDERED: ALBUMIN 25% 25GM 100ML 0.25 GM/ML BTL IV SCH (08:30)
[2020-07-07] MEDS ORDERED: POTASSIUM CHLORIDE 20MEQ/100ML 200 ML IV ONE (08:30)
[2020-07-07] MEDS: FUROSEMIDE INJ 10 MG/ML 4 ML VIAL IV SCH ×2 (09:13→20:42)
[2020-07-07] MEDS: DOCUSATE SODIUM LIQD 100 MG/10 ML UDC NG SCH (09:13)
[2020-07-07] MEDS: ENOXAPARIN INJ 80 MG/0.8 ML SYR SC SCH ×2 (09:13→20:42)
[2020-07-07] MEDS: ASCORBIC ACID 500 MG TAB PO SCH ×2 (09:13→16:57)
[2020-07-07] MEDS: ZINC SULFATE 220 MG CAP PO SCH (09:13)
[2020-07-07] MEDS: CHOLECALCIFEROL 400 UNIT TAB PO SCH (09:13)
[2020-07-07] MEDS: IBUPROFEN 100 MG/5 ML SUSP PO PRN ×3 (09:13→23:11)
[2020-07-07] MEDS: ALBUMIN 25% 25GM 100ML 100 ML IV SCH ×2 (09:28→17:12)
[2020-07-07 16:18] LABS: ABG HCO3 35 mmol/L (22-26); ABG PCO2 56 mmHg (35-45); ABG PH 7.41 (7.35-7.45); ABG PO2 74 mmHg (80-105); ABG TCO2 37
[2020-07-08] VITALS (26 sets, daily range): BP systolic 105–171; BP diastolic 58–85
[2020-07-08] MEDS ORDERED: MIDAZOLAM HCL 5MG/ML 10ML VIAL 100 ML IV ONE (00:45)
[2020-07-08] MEDS: ALBUMIN 25% 25GM 100ML 100 ML IV SCH (01:28)
[2020-07-08] MEDS: MIDAZOLAM HCL 5MG/ML 10ML VIAL 100 ML IV SCH ×4 (01:47→20:53)
[2020-07-08] MEDS: PROPOFOL IV EMULSION 10MG/ML 100 ML IV SCH ×3 (02:33→20:51)
[2020-07-08 05:08] LABS: BASOPHILS # (AUTO) 0.1 (0.0-0.1); BASOPHILS % 0.4 % (0.0-1.0); EOSINOPHILS # (AUTO) 0.4 (0.0-0.4); EOSINOPHILS % 2.5 % (0.0-6.0); HEMATOCRIT 27.6 % (34.2-44.1); HEMOGLOBIN 8.8 g/dL (12.0-16.0); LYMPHOCYTES # (AUTO) 1.7 (1.0-3.2); LYMPHOCYTES % 11.8 % (18.0-39.1); MEAN CORPUSCULAR HEMOGLOBIN 29.7 pg (28-32); MEAN CORPUSCULAR HGB CONC 31.9 g/dL (31-35); MEAN CORPUSCULAR VOLUME 93.2 fL (81-99); MONOCYTES # (AUTO) 1.4 (0.2-0.8); MONOCYTES % 9.8 % (4.4-11.3); NEUTROPHILS # (AUTO) 9.8 (2.1-6.9); NEUTROPHILS % 70.5 % (38.7-80.0); PLATELET COUNT 362 x10e3/uL (140-360); RED BLOOD COUNT 2.96 x10e6/uL (3.6-5.1); RED CELL DISTRIBUTION WIDTH 13.7 % (11.7-14.4)
[2020-07-08] MEDS: MEROPENEM 1GM 100 ML IV SCH ×3 (05:19→20:50)
[2020-07-08] MEDS: FENTANYL 2000MCG/NS 250 250 ML IV SCH ×3 (05:20→20:52)
[2020-07-08 05:56] LABS: ALANINE AMINOTRANSFERASE 30 IU/L (0-55); ALBUMIN 2.8 g/dL (3.5-5.0); ALBUMIN/GLOBULIN RATIO 0.8 (0.8-2.0); ALKALINE PHOSPHATASE 48 IU/L (40-150); ANION GAP 12.2 mmol/L (8-16); BLOOD UREA NITROGEN 17 mg/dL (7-26); BUN/CREATININE RATIO 33 (6-25); CALCIUM 8.2 mg/dL (8.4-10.2); CARBON DIOXIDE 33 mmol/L (22-29); CHLORIDE 99 mmol/L (98-107); CREATININE, SERUM 0.51 mg/dL (0.57-1.11); EST GLOMERULAR FILTRATION RATE > 60 ML/MIN (60-); GLUCOSE 121 mg/dL (74-118); POTASSIUM 3.2 mmol/L (3.5-5.1); SODIUM 141 mmol/L (136-145)
[2020-07-08 07:13] LABS: ABG HCO3 35 mmol/L (22-26); ABG PCO2 58 mmHg (35-45); ABG PO2 73 mmHg (80-105); ABG TCO2 37
[2020-07-08] MEDS: INSULIN REGULAR, HUMAN 100 UNIT/1 ML 3ML VIAL SQ SCH ×4 (07:30→23:09)
[2020-07-08] MEDS ORDERED: POTASSIUM CHLORIDE 20MEQ/100ML 200 ML IV ONE (08:15)
[2020-07-08] MEDS: FAMOTIDINE 20 MG TAB PO SCH ×2 (08:25→17:04)
[2020-07-08] MEDS: FUROSEMIDE INJ 10 MG/ML 4 ML VIAL IV SCH (09:04)
[2020-07-08] MEDS: ACETAZOLAMIDE 250 MG TAB PO SCH ×2 (09:05→20:50)
[2020-07-08] MEDS: ASCORBIC ACID 500 MG TAB PO SCH ×2 (09:05→17:09)
[2020-07-08] MEDS: ZINC SULFATE 220 MG CAP PO SCH (09:05)
[2020-07-08] MEDS: ENOXAPARIN INJ 80 MG/0.8 ML SYR SC SCH ×2 (09:05→20:50)
[2020-07-08] MEDS: CHOLECALCIFEROL 400 UNIT TAB PO SCH (09:05)
[2020-07-08] MEDS: DOCUSATE SODIUM LIQD 100 MG/10 ML UDC NG SCH (09:05)
[2020-07-08] MEDS: IBUPROFEN 100 MG/5 ML SUSP PO PRN (09:10)
[2020-07-08] MEDS: ACETAMINOPHEN 325 MG TAB PO PRN (09:11)
[2020-07-08] MEDS ORDERED: FUROSEMIDE IV SCH (14:45)
[2020-07-08] MEDS ORDERED: SODIUM CHLORIDE 0.9% IV SCH (14:45)
[2020-07-08] MEDS: LINEZOLID 600 MG/D5W 300ML 300 ML IV SCH (14:47)
[2020-07-08] MEDS: FUROSEMIDE INJ 100 MG in SODIUM CHLORIDE 0.9% 90 ML IV SCH (17:04)
[2020-07-08] MEDS ORDERED: SODIUM CHLORIDE 0.9% 100 ML ONE (20:32)
[2020-07-08 21:23] LABS: ABG HCO3 34 mmol/L (22-26); ABG PCO2 65 mmHg (35-45); ABG PH 7.33 (7.35-7.45); ABG PO2 126 mmHg (80-105); ABG TCO2 36
[2020-07-09] VITALS (25 sets, daily range): BP systolic 106–166; BP diastolic 60–91
[2020-07-09] MEDS: ROCURONIUM BROMIDE 1,250 MG in SODIUM CHLORIDE 0.9% 250ML 125 ML IV SCH (00:56)
[2020-07-09] MEDS: MIDAZOLAM HCL 5MG/ML 10ML VIAL 100 ML IV SCH ×5 (00:58→20:45)
[2020-07-09] MEDS: LINEZOLID 600 MG/D5W 300ML 300 ML IV SCH ×2 (03:12→15:49)
[2020-07-09] MEDS: FENTANYL 2000MCG/NS 250 250 ML IV SCH ×4 (03:14→23:13)
[2020-07-09 05:04] LABS: BASOPHILS # (AUTO) 0.1 (0.0-0.1); BASOPHILS % 0.4 % (0.0-1.0); EOSINOPHILS # (AUTO) 0.3 (0.0-0.4); EOSINOPHILS % 1.6 % (0.0-6.0); HEMATOCRIT 28.7 % (34.2-44.1); HEMOGLOBIN 9.3 g/dL (12.0-16.0); LYMPHOCYTES # (AUTO) 1.2 (1.0-3.2); LYMPHOCYTES % 7.3 % (18.0-39.1); MEAN CORPUSCULAR HEMOGLOBIN 29.8 pg (28-32); MEAN CORPUSCULAR HGB CONC 32.4 g/dL (31-35); MONOCYTES # (AUTO) 1.4 (0.2-0.8); MONOCYTES % 8.4 % (4.4-11.3); NEUTROPHILS # (AUTO) 12.6 (2.1-6.9); NEUTROPHILS % 77.9 % (38.7-80.0); PLATELET COUNT 424 x10e3/uL (140-360); RED BLOOD COUNT 3.12 x10e6/uL (3.6-5.1); RED CELL DISTRIBUTION WIDTH 13.6 % (11.7-14.4)
[2020-07-09 05:32] LABS: ALANINE AMINOTRANSFERASE 33 IU/L (0-55); ALBUMIN 2.5 g/dL (3.5-5.0); ALBUMIN/GLOBULIN RATIO 0.7 (0.8-2.0); ALKALINE PHOSPHATASE 59 IU/L (40-150); ANION GAP 13.6 mmol/L (8-16); BLOOD UREA NITROGEN 13 mg/dL (7-26); BUN/CREATININE RATIO 27 (6-25); CALCIUM 8.2 mg/dL (8.4-10.2); CARBON DIOXIDE 32 mmol/L (22-29); CHLORIDE 94 mmol/L (98-107); CREATININE, SERUM 0.48 mg/dL (0.57-1.11); EST GLOMERULAR FILTRATION RATE > 60 ML/MIN (60-); GLUCOSE 142 mg/dL (74-118); POTASSIUM 3.6 mmol/L (3.5-5.1); SODIUM 136 mmol/L (136-145)
[2020-07-09] MEDS: MEROPENEM 1GM 100 ML IV SCH ×3 (05:47→21:37)
[2020-07-09] MEDS: INSULIN REGULAR, HUMAN 100 UNIT/1 ML 3ML VIAL SQ SCH ×4 (05:48→23:12)
[2020-07-09] MEDS: FAMOTIDINE 20 MG TAB PO SCH ×2 (07:14→16:22)
[2020-07-09] MEDS: ACETAZOLAMIDE 250 MG TAB PO SCH ×2 (09:01→21:37)
[2020-07-09] MEDS: ASCORBIC ACID 500 MG TAB PO SCH ×2 (09:01→16:22)
[2020-07-09] MEDS: DOCUSATE SODIUM LIQD 100 MG/10 ML UDC NG SCH (09:01)
[2020-07-09] MEDS: ENOXAPARIN INJ 80 MG/0.8 ML SYR SC SCH ×2 (09:02→21:37)
[2020-07-09] MEDS: ZINC SULFATE 220 MG CAP PO SCH (09:02)
[2020-07-09] MEDS: CHOLECALCIFEROL 400 UNIT TAB PO SCH (09:02)
[2020-07-09] MEDS: FUROSEMIDE INJ 100 MG in SODIUM CHLORIDE 0.9% 90 ML IV SCH (09:03)
[2020-07-09 09:12] LABS: ABG HCO3 34 mmol/L (22-26); ABG PCO2 53 mmHg (35-45); ABG PH 7.41 (7.35-7.45); ABG PO2 87 mmHg (80-105); ABG TCO2 35
[2020-07-09] MEDS ORDERED: POTASSIUM CHLORIDE 20MEQ/100ML 100 ML IV ONE (10:00)
[2020-07-09] MEDS: PROPOFOL IV EMULSION 10MG/ML 100 ML IV SCH (15:50)
[2020-07-09] MEDS: ACETAMINOPHEN 325 MG TAB PO PRN (16:25)
[2020-07-10] VITALS (28 sets, daily range): BP systolic 87–164; BP diastolic 47–88
[2020-07-10] MEDS: MIDAZOLAM HCL 5MG/ML 10ML VIAL 100 ML IV SCH ×5 (02:00→22:00)
[2020-07-10] MEDS: LINEZOLID 600 MG/D5W 300ML 300 ML IV SCH (03:24)
[2020-07-10 04:56] LABS: BASOPHILS # (AUTO) 0.1 (0.0-0.1); BASOPHILS % 0.5 % (0.0-1.0); EOSINOPHILS # (AUTO) 0.4 (0.0-0.4); EOSINOPHILS % 2.3 % (0.0-6.0); HEMATOCRIT 30.3 % (34.2-44.1); HEMOGLOBIN 9.9 g/dL (12.0-16.0); LYMPHOCYTES # (AUTO) 1.5 (1.0-3.2); LYMPHOCYTES % 10.1 % (18.0-39.1); MEAN CORPUSCULAR HEMOGLOBIN 29.6 pg (28-32); MEAN CORPUSCULAR HGB CONC 32.7 g/dL (31-35); MEAN CORPUSCULAR VOLUME 90.7 fL (81-99); MONOCYTES # (AUTO) 1.4 (0.2-0.8); MONOCYTES % 9.3 % (4.4-11.3); NEUTROPHILS # (AUTO) 11.2 (2.1-6.9); NEUTROPHILS % 72.8 % (38.7-80.0); PLATELET COUNT 451 x10e3/uL (140-360); RED BLOOD COUNT 3.34 x10e6/uL (3.6-5.1); RED CELL DISTRIBUTION WIDTH 13.6 % (11.7-14.4)
[2020-07-10 05:22] LABS: ALANINE AMINOTRANSFERASE 35 IU/L (0-55); ALBUMIN 2.4 g/dL (3.5-5.0); ALBUMIN/GLOBULIN RATIO 0.6 (0.8-2.0); ALKALINE PHOSPHATASE 60 IU/L (40-150); ANION GAP 12.1 mmol/L (8-16); BLOOD UREA NITROGEN 12 mg/dL (7-26); BUN/CREATININE RATIO 24 (6-25); CALCIUM 7.9 mg/dL (8.4-10.2); CARBON DIOXIDE 34 mmol/L (22-29); CHLORIDE 92 mmol/L (98-107); CREATININE, SERUM 0.49 mg/dL (0.57-1.11); EST GLOMERULAR FILTRATION RATE > 60 ML/MIN (60-); GLUCOSE 132 mg/dL (74-118); POTASSIUM 3.1 mmol/L (3.5-5.1); SODIUM 135 mmol/L (136-145)
[2020-07-10] MEDS: INSULIN REGULAR, HUMAN 100 UNIT/1 ML 3ML VIAL SQ SCH ×4 (05:49→23:56)
[2020-07-10] MEDS: MEROPENEM 1GM 100 ML IV SCH (06:15)
[2020-07-10] MEDS: FENTANYL 2000MCG/NS 250 250 ML IV SCH ×3 (06:18→20:30)
[2020-07-10] MEDS ORDERED: POTASSIUM CHLORIDE 20MEQ/100ML 200 ML IV ONE (07:30)
[2020-07-10] MEDS ORDERED: CITRATE OF MAGNESIA 300ML BOTTLE PO ONE (08:30)
[2020-07-10 09:09] LABS: ABG HCO3 36 mmol/L (22-26); ABG PCO2 64 mmHg (35-45); ABG PH 7.36 (7.35-7.45); ABG PO2 159 mmHg (80-105); ABG TCO2 38
[2020-07-10] MEDS: ROCURONIUM BROMIDE 1,250 MG in SODIUM CHLORIDE 0.9% 250ML 125 ML IV SCH ×2 (09:22→23:30)
[2020-07-10] MEDS: FUROSEMIDE INJ 100 MG in SODIUM CHLORIDE 0.9% 90 ML IV SCH ×2 (09:37→22:00)
[2020-07-10] MEDS: FAMOTIDINE 20 MG TAB PO SCH ×2 (09:37→17:59)
[2020-07-10] MEDS: ACETAZOLAMIDE 250 MG TAB PO SCH ×2 (09:38→20:33)
[2020-07-10] MEDS: ZINC SULFATE 220 MG CAP PO SCH (09:38)
[2020-07-10] MEDS: DOCUSATE SODIUM LIQD 100 MG/10 ML UDC NG SCH (09:38)
[2020-07-10] MEDS: ENOXAPARIN INJ 80 MG/0.8 ML SYR SC SCH ×2 (09:38→20:33)
[2020-07-10] MEDS: CHOLECALCIFEROL 400 UNIT TAB PO SCH (09:38)
[2020-07-10] MEDS: ASCORBIC ACID 500 MG TAB PO SCH ×2 (09:38→17:59)
[2020-07-10] MEDS: PROPOFOL IV EMULSION 10MG/ML 100 ML IV SCH (17:07)
[2020-07-10] MEDS: LACTULOSE SYRUP 20 GM/30 ML UDC PO PRN (17:59)
[2020-07-10] MEDS: BISACODYL 10 MG SUPP PR PRN (18:10)
[2020-07-11] VITALS (30 sets, daily range): BP systolic 107–160; BP diastolic 57–80
[2020-07-11] MEDS: FENTANYL 2000MCG/NS 250 250 ML IV SCH ×3 (03:00→17:09)
[2020-07-11] MEDS: MIDAZOLAM HCL 5MG/ML 10ML VIAL 100 ML IV SCH ×3 (03:00→18:41)
[2020-07-11] MEDS: PROPOFOL IV EMULSION 10MG/ML 100 ML IV SCH ×2 (06:30→23:30)
[2020-07-11 06:32] LABS: BASOPHILS # (AUTO) 0.1 (0.0-0.1); BASOPHILS % 0.5 % (0.0-1.0); EOSINOPHILS # (AUTO) 0.4 (0.0-0.4); EOSINOPHILS % 2.3 % (0.0-6.0); HEMOGLOBIN 10.3 g/dL (12.0-16.0); LYMPHOCYTES # (AUTO) 1.6 (1.0-3.2); LYMPHOCYTES % 9.3 % (18.0-39.1); MEAN CORPUSCULAR HEMOGLOBIN 29.7 pg (28-32); MEAN CORPUSCULAR HGB CONC 33.2 g/dL (31-35); MEAN CORPUSCULAR VOLUME 89.3 fL (81-99); MONOCYTES # (AUTO) 1.9 (0.2-0.8); MONOCYTES % 11.4 % (4.4-11.3); NEUTROPHILS % 71.4 % (38.7-80.0); PLATELET COUNT 466 x10e3/uL (140-360); RED BLOOD COUNT 3.47 x10e6/uL (3.6-5.1); RED CELL DISTRIBUTION WIDTH 13.4 % (11.7-14.4)
[2020-07-11] MEDS: INSULIN REGULAR, HUMAN 100 UNIT/1 ML 3ML VIAL SQ SCH ×4 (06:40→23:22)
[2020-07-11 06:48] LABS: ALANINE AMINOTRANSFERASE 42 IU/L (0-55); ALBUMIN 2.4 g/dL (3.5-5.0); ALBUMIN/GLOBULIN RATIO 0.6 (0.8-2.0); ALKALINE PHOSPHATASE 65 IU/L (40-150); BLOOD UREA NITROGEN 12 mg/dL (7-26); BUN/CREATININE RATIO 27 (6-25); CARBON DIOXIDE 33 mmol/L (22-29); CHLORIDE 91 mmol/L (98-107); CREATININE, SERUM 0.45 mg/dL (0.57-1.11); EST GLOMERULAR FILTRATION RATE > 60 ML/MIN (60-); GLUCOSE 142 mg/dL (74-118); SODIUM 134 mmol/L (136-145)
[2020-07-11] MEDS: ACETAZOLAMIDE 250 MG TAB PO SCH ×2 (08:06→21:09)
[2020-07-11] MEDS: CHOLECALCIFEROL 400 UNIT TAB PO SCH (08:06)
[2020-07-11] MEDS: DOCUSATE SODIUM LIQD 100 MG/10 ML UDC NG SCH (08:06)
[2020-07-11] MEDS: ASCORBIC ACID 500 MG TAB PO SCH ×2 (08:06→18:05)
[2020-07-11] MEDS: ZINC SULFATE 220 MG CAP PO SCH (08:06)
[2020-07-11] MEDS: KCL 20 MEQ PACKET/ ORAL SOLN NG SCH (08:06)
[2020-07-11] MEDS: FAMOTIDINE 20 MG TAB PO SCH ×2 (08:06→18:05)
[2020-07-11] MEDS: ENOXAPARIN INJ 80 MG/0.8 ML SYR SC SCH ×2 (08:07→21:09)
[2020-07-11] MEDS: LACTULOSE SYRUP 20 GM/30 ML UDC PO PRN (08:08)
[2020-07-11] MEDS: BISACODYL 10 MG SUPP PR PRN (08:08)
[2020-07-11 08:11] LABS: ABG HCO3 35 mmol/L (22-26); ABG PCO2 59 mmHg (35-45); ABG PH 7.38 (7.35-7.45); ABG PO2 132 mmHg (80-105); ABG TCO2 37
[2020-07-11] MEDS ORDERED: POTASSIUM CHLORIDE 20MEQ/15ML UDC NG SCH (09:00)
[2020-07-11 09:37] LABS: BAND NEUTROPHILS % (MANUAL) 4 %; EOSINOPHILS % (MANUAL) 2 % (0-7); LYMPHOCYTES % (MANUAL) 8 % (19-48); MONOCYTES % (MANUAL) 9 % (3.4-9.0); NEUTROPHILS % (MANUAL) 77 % (40-74)
[2020-07-11] MEDS ORDERED: METOCLOPRAMIDE HCL 10 MG/2ML VIAL IV ONE (10:45)
[2020-07-11] MEDS ORDERED: POTASSIUM CHLORIDE 20MEQ/100ML 200 ML IV ONE (12:45)
[2020-07-11 16:05] LABS: ABG HCO3 35 mmol/L (22-26); ABG PCO2 55 mmHg (35-45); ABG PO2 118 mmHg (80-105)
[2020-07-11 16:06] LABS: ABG TCO2 36
[2020-07-11] MEDS: FUROSEMIDE INJ 100 MG in SODIUM CHLORIDE 0.9% 90 ML IV SCH (17:09)
[2020-07-11] MEDS: ACETAMINOPHEN 325 MG TAB PO PRN (18:05)
[2020-07-12] VITALS (27 sets, daily range): BP systolic 95–163; BP diastolic 50–81
[2020-07-12] MEDS: FENTANYL 2000MCG/NS 250 250 ML IV SCH ×3 (00:09→21:00)
[2020-07-12] MEDS: MIDAZOLAM HCL 5MG/ML 10ML VIAL 100 ML IV SCH ×4 (00:09→19:30)
[2020-07-12] MEDS: PROPOFOL IV EMULSION 10MG/ML 100 ML IV SCH (05:24)
[2020-07-12] MEDS: INSULIN REGULAR, HUMAN 100 UNIT/1 ML 3ML VIAL SQ SCH ×3 (05:26→18:23)
[2020-07-12 06:30] LABS: BASOPHILS # (AUTO) 0.1 (0.0-0.1); BASOPHILS % 0.5 % (0.0-1.0); EOSINOPHILS # (AUTO) 0.4 (0.0-0.4); EOSINOPHILS % 2.5 % (0.0-6.0); HEMATOCRIT 29.7 % (34.2-44.1); HEMOGLOBIN 9.7 g/dL (12.0-16.0); LYMPHOCYTES % 12.2 % (18.0-39.1); MEAN CORPUSCULAR HEMOGLOBIN 29.3 pg (28-32); MEAN CORPUSCULAR HGB CONC 32.7 g/dL (31-35); MEAN CORPUSCULAR VOLUME 89.7 fL (81-99); MONOCYTES # (AUTO) 1.9 (0.2-0.8); MONOCYTES % 11.7 % (4.4-11.3); NEUTROPHILS % 67.7 % (38.7-80.0); PLATELET COUNT 422 x10e3/uL (140-360); RED BLOOD COUNT 3.31 x10e6/uL (3.6-5.1); RED CELL DISTRIBUTION WIDTH 13.8 % (11.7-14.4)
[2020-07-12] MEDS ORDERED: ROCURONIUM BROMIDE 250 ML IV ONE (06:40)
[2020-07-12 07:03] LABS: ALANINE AMINOTRANSFERASE 38 IU/L (0-55); ALBUMIN 2.1 g/dL (3.5-5.0); ALBUMIN/GLOBULIN RATIO 0.5 (0.8-2.0); ALKALINE PHOSPHATASE 60 IU/L (40-150); ANION GAP 12.2 mmol/L (8-16); BLOOD UREA NITROGEN 12 mg/dL (7-26); BUN/CREATININE RATIO 24 (6-25); CARBON DIOXIDE 34 mmol/L (22-29); CHLORIDE 92 mmol/L (98-107); EST GLOMERULAR FILTRATION RATE > 60 ML/MIN (60-); GLUCOSE 133 mg/dL (74-118); POTASSIUM 3.2 mmol/L (3.5-5.1); SODIUM 135 mmol/L (136-145)
[2020-07-12] MEDS: FAMOTIDINE 20 MG TAB PO SCH ×2 (07:30→18:25)
[2020-07-12] MEDS ORDERED: SODIUM CHLORIDE 0.9% 1000ML 1,000 ML ONE (08:49)
[2020-07-12 08:53] LABS: BAND NEUTROPHILS % (MANUAL) 5 %; EOSINOPHILS % (MANUAL) 2 % (0-7); LYMPHOCYTES % (MANUAL) 9 % (19-48); MONOCYTES % (MANUAL) 9 % (3.4-9.0); NEUTROPHILS % (MANUAL) 75 % (40-74)
[2020-07-12] MEDS: KCL 20 MEQ PACKET/ ORAL SOLN NG SCH (08:54)
[2020-07-12] MEDS: DOCUSATE SODIUM LIQD 100 MG/10 ML UDC NG SCH (08:54)
[2020-07-12] MEDS: CHOLECALCIFEROL 400 UNIT TAB PO SCH (08:56)
[2020-07-12] MEDS: ASCORBIC ACID 500 MG TAB PO SCH ×2 (08:56→18:25)
[2020-07-12] MEDS: ACETAZOLAMIDE 250 MG TAB PO SCH ×2 (08:56→20:28)
[2020-07-12] MEDS: ZINC SULFATE 220 MG CAP PO SCH (08:56)
[2020-07-12] MEDS: ENOXAPARIN INJ 80 MG/0.8 ML SYR SC SCH ×2 (08:56→20:28)
[2020-07-12 09:06] LABS: ABG PH 7.41 (7.35-7.45)
[2020-07-12 09:07] LABS: ABG HCO3 35 mmol/L (22-26); ABG PCO2 56 mmHg (35-45); ABG PO2 61 mmHg (80-105); ABG TCO2 37
[2020-07-12] MEDS ORDERED: POTASSIUM CHLORIDE 20 MEQ TAB CR PO ONE (13:00)
[2020-07-12] MEDS: FUROSEMIDE INJ 100 MG in SODIUM CHLORIDE 0.9% 90 ML IV SCH (14:00)
[2020-07-12] MEDS ORDERED: MIDAZOLAM HCL 5MG/ML 10ML VIAL 100 ML IV ONE (15:11)
[2020-07-12] MEDS: ROCURONIUM BROMIDE 1,250 MG in SODIUM CHLORIDE 0.9% 250ML 125 ML IV SCH ×2 (18:00→22:15)
[2020-07-12] MEDS: SENNA-S TABLET PO SCH (20:28)
[2020-07-13] VITALS (27 sets, daily range): BP systolic 101–137; BP diastolic 58–72
[2020-07-13] MEDS: FUROSEMIDE INJ 100 MG in SODIUM CHLORIDE 0.9% 90 ML IV SCH ×3 (00:41→18:49)
[2020-07-13] MEDS: INSULIN REGULAR, HUMAN 100 UNIT/1 ML 3ML VIAL SQ SCH ×4 (00:58→17:42)
[2020-07-13 06:42] LABS: BASOPHILS # (AUTO) 0.1 (0.0-0.1); BASOPHILS % 0.6 % (0.0-1.0); EOSINOPHILS # (AUTO) 0.4 (0.0-0.4); EOSINOPHILS % 2.1 % (0.0-6.0); HEMATOCRIT 30.9 % (34.2-44.1); HEMOGLOBIN 10.2 g/dL (12.0-16.0); LYMPHOCYTES # (AUTO) 1.7 (1.0-3.2); LYMPHOCYTES % 8.7 % (18.0-39.1); MEAN CORPUSCULAR HEMOGLOBIN 29.4 pg (28-32); MONOCYTES % 10.5 % (4.4-11.3); NEUTROPHILS # (AUTO) 13.9 (2.1-6.9); NEUTROPHILS % 71.7 % (38.7-80.0); PLATELET COUNT 480 x10e3/uL (140-360); RED BLOOD COUNT 3.47 x10e6/uL (3.6-5.1); RED CELL DISTRIBUTION WIDTH 13.9 % (11.7-14.4)
[2020-07-13 07:08] LABS: ALANINE AMINOTRANSFERASE 33 IU/L (0-55); ALBUMIN 2.2 g/dL (3.5-5.0); ALBUMIN/GLOBULIN RATIO 0.5 (0.8-2.0); ALKALINE PHOSPHATASE 61 IU/L (40-150); ANION GAP 12.2 mmol/L (8-16); BLOOD UREA NITROGEN 12 mg/dL (7-26); BUN/CREATININE RATIO 26 (6-25); CALCIUM 8.2 mg/dL (8.4-10.2); CARBON DIOXIDE 36 mmol/L (22-29); CHLORIDE 89 mmol/L (98-107); CREATININE, SERUM 0.47 mg/dL (0.57-1.11); EST GLOMERULAR FILTRATION RATE > 60 ML/MIN (60-); GLUCOSE 160 mg/dL (74-118); POTASSIUM 3.2 mmol/L (3.5-5.1); SODIUM 134 mmol/L (136-145)
[2020-07-13] MEDS: DOCUSATE SODIUM LIQD 100 MG/10 ML UDC NG SCH (07:38)
[2020-07-13] MEDS: SENNA-S TABLET PO SCH ×2 (07:38→21:00)
[2020-07-13] MEDS: CHOLECALCIFEROL 400 UNIT TAB PO SCH (07:38)
[2020-07-13] MEDS: KCL 20 MEQ PACKET/ ORAL SOLN NG SCH (07:38)
[2020-07-13] MEDS: ENOXAPARIN INJ 80 MG/0.8 ML SYR SC SCH ×2 (07:38→21:00)
[2020-07-13] MEDS: ACETAZOLAMIDE 250 MG TAB PO SCH (07:38)
[2020-07-13] MEDS: ZINC SULFATE 220 MG CAP PO SCH (07:38)
[2020-07-13] MEDS: FAMOTIDINE 20 MG TAB PO SCH ×2 (07:38→17:41)
[2020-07-13] MEDS: ASCORBIC ACID 500 MG TAB PO SCH ×2 (07:38→17:41)
[2020-07-13 07:44] LABS: ABG HCO3 42 mmol/L (22-26); ABG PCO2 64 mmHg (35-45); ABG PH 7.42 (7.35-7.45); ABG PO2 80 mmHg (80-105); ABG TCO2 43
[2020-07-13 07:59] LABS: BAND NEUTROPHILS % (MANUAL) 5 %; EOSINOPHILS % (MANUAL) 3 % (0-7); LYMPHOCYTES % (MANUAL) 8 % (19-48); METAMYELOCYTES % (MANUAL) 3 % (0-0); MONOCYTES % (MANUAL) 7 % (3.4-9.0); NEUTROPHILS % (MANUAL) 72 % (40-74); PLATELET ESTIMATE ADEQUATE; PLATELET MORPHOLOGY COMMENT NORMAL; POLYCHROMASIA FEW; RBC MORPHOLOGY COMMENT NORMAL
[2020-07-13] MEDS ORDERED: POTASSIUM CHLORIDE 20MEQ/100ML 200 ML IV ONE (10:30)
[2020-07-13] MEDS: PROPOFOL IV EMULSION 10MG/ML 100 ML IV SCH ×2 (11:39→23:30)
[2020-07-13] MEDS: FENTANYL 2000MCG/NS 250 250 ML IV SCH ×2 (11:40→17:42)
[2020-07-13] MEDS: MIDAZOLAM HCL 5MG/ML 10ML VIAL 100 ML IV SCH ×2 (11:41→17:42)
[2020-07-13] MEDS: METHYLPREDNISOLONE SOD SUCC 40 MG/ML VIAL 1ML IV SCH (12:36)
[2020-07-13] MEDS: ROCURONIUM BROMIDE 1,250 MG in SODIUM CHLORIDE 0.9% 250ML 125 ML IV SCH (15:48)
[2020-07-13] MEDS: ACETAMINOPHEN 325 MG TAB PO PRN (17:43)
[2020-07-14] VITALS (28 sets, daily range): BP systolic 93–142; BP diastolic 52–71
[2020-07-14] MEDS: INSULIN REGULAR, HUMAN 100 UNIT/1 ML 3ML VIAL SQ SCH ×4 (00:30→18:13)
[2020-07-14] MEDS: ACETAZOLAMIDE 250 MG TAB PO SCH ×3 (00:35→20:52)
[2020-07-14 05:48] LABS: BASOPHILS # (AUTO) 0.1 (0.0-0.1); BASOPHILS % 0.4 % (0.0-1.0); EOSINOPHILS # (AUTO) 0.3 (0.0-0.4); EOSINOPHILS % 1.8 % (0.0-6.0); HEMATOCRIT 29.8 % (34.2-44.1); HEMOGLOBIN 9.7 g/dL (12.0-16.0); LYMPHOCYTES # (AUTO) 2.8 (1.0-3.2); LYMPHOCYTES % 15.1 % (18.0-39.1); MEAN CORPUSCULAR HEMOGLOBIN 29.2 pg (28-32); MEAN CORPUSCULAR HGB CONC 32.6 g/dL (31-35); MEAN CORPUSCULAR VOLUME 89.8 fL (81-99); MONOCYTES % 10.7 % (4.4-11.3); NEUTROPHILS # (AUTO) 12.1 (2.1-6.9); NEUTROPHILS % 66.4 % (38.7-80.0); PLATELET COUNT 476 x10e3/uL (140-360); RED BLOOD COUNT 3.32 x10e6/uL (3.6-5.1); RED CELL DISTRIBUTION WIDTH 13.8 % (11.7-14.4)
[2020-07-14 06:17] LABS: ALANINE AMINOTRANSFERASE 36 IU/L (0-55); ALBUMIN 2.2 g/dL (3.5-5.0); ALBUMIN/GLOBULIN RATIO 0.5 (0.8-2.0); ALKALINE PHOSPHATASE 60 IU/L (40-150); ANION GAP 12.9 mmol/L (8-16); BLOOD UREA NITROGEN 17 mg/dL (7-26); BUN/CREATININE RATIO 35 (6-25); CALCIUM 8.4 mg/dL (8.4-10.2); CARBON DIOXIDE 36 mmol/L (22-29); CHLORIDE 90 mmol/L (98-107); CREATININE, SERUM 0.48 mg/dL (0.57-1.11); EST GLOMERULAR FILTRATION RATE > 60 ML/MIN (60-); GLUCOSE 110 mg/dL (74-118); SODIUM 136 mmol/L (136-145)
[2020-07-14 06:29] LABS: POTASSIUM 2.9 mmol/L (3.5-5.1)
[2020-07-14] MEDS: FUROSEMIDE INJ 100 MG in SODIUM CHLORIDE 0.9% 90 ML IV SCH (06:44)
[2020-07-14] MEDS: KCL 20 MEQ PACKET/ ORAL SOLN NG SCH (06:45)
[2020-07-14] MEDS: ROCURONIUM BROMIDE 1,250 MG in SODIUM CHLORIDE 0.9% 250ML 125 ML IV SCH (07:39)
[2020-07-14] MEDS: ZINC SULFATE 220 MG CAP PO SCH (08:02)
[2020-07-14] MEDS: SENNA-S TABLET PO SCH ×2 (08:02→20:52)
[2020-07-14] MEDS: FAMOTIDINE 20 MG TAB PO SCH ×2 (08:02→17:01)
[2020-07-14] MEDS: ASCORBIC ACID 500 MG TAB PO SCH ×2 (08:02→17:01)
[2020-07-14] MEDS: DOCUSATE SODIUM LIQD 100 MG/10 ML UDC NG SCH (08:02)
[2020-07-14] MEDS: CHOLECALCIFEROL 400 UNIT TAB PO SCH (08:02)
[2020-07-14] MEDS: METHYLPREDNISOLONE SOD SUCC 40 MG/ML VIAL 1ML IV SCH (08:02)
[2020-07-14] MEDS: ENOXAPARIN INJ 80 MG/0.8 ML SYR SC SCH ×2 (08:02→20:52)
[2020-07-14] MEDS: MIDAZOLAM HCL 5MG/ML 10ML VIAL 100 ML IV SCH ×3 (08:03→20:30)
[2020-07-14] MEDS: PROPOFOL IV EMULSION 10MG/ML 100 ML IV SCH (08:03)
[2020-07-14] MEDS: FENTANYL 2000MCG/NS 250 250 ML IV SCH ×3 (08:04→23:00)
[2020-07-14] MEDS: ACETAMINOPHEN 325 MG TAB PO PRN (08:21)
[2020-07-14] MEDS ORDERED: POTASSIUM CHLORIDE 20MEQ/100ML 200 ML IV ONE (09:00)
[2020-07-14 10:15] LABS: ABG HCO3 39 mmol/L (22-26); ABG PCO2 59 mmHg (35-45); ABG PH 7.43 (7.35-7.45); ABG PO2 85 mmHg (80-105); ABG TCO2 41
[2020-07-14 18:43] LABS: ABG PCO2 48 mmHg (35-45); ABG PH 7.49 (7.35-7.45); ABG PO2 154 mmHg (80-105)
[2020-07-14 18:44] LABS: ABG HCO3 37 mmol/L (22-26); ABG TCO2 39
[2020-07-14] MEDS: ALBUMIN 25% 25GM 100ML 100 ML IV SCH (19:30)
[2020-07-14] MEDS ORDERED: ALBUMIN 25% 25GM 100ML 0.25 GM/ML BTL IV SCH (19:30)
[2020-07-14] MEDS: FUROSEMIDE INJ 10 MG/ML 4 ML VIAL IV SCH (20:53)
[2020-07-15] VITALS (28 sets, daily range): BP systolic 94–155; BP diastolic 49–89
[2020-07-15] MEDS: ROCURONIUM BROMIDE 1,250 MG in SODIUM CHLORIDE 0.9% 250ML 125 ML IV SCH (00:15)
[2020-07-15] MEDS: ALBUMIN 25% 25GM 100ML 100 ML IV SCH ×2 (03:30→12:09)
[2020-07-15] MEDS: INSULIN REGULAR, HUMAN 100 UNIT/1 ML 3ML VIAL SQ SCH ×4 (06:00→17:44)
[2020-07-15] MEDS: FENTANYL 2000MCG/NS 250 250 ML IV SCH ×3 (06:00→20:08)
[2020-07-15 06:27] LABS: BASOPHILS # (AUTO) 0.1 (0.0-0.1); BASOPHILS % 0.5 % (0.0-1.0); EOSINOPHILS # (AUTO) 0.3 (0.0-0.4); EOSINOPHILS % 2.4 % (0.0-6.0); HEMATOCRIT 27.6 % (34.2-44.1); HEMOGLOBIN 8.9 g/dL (12.0-16.0); LYMPHOCYTES # (AUTO) 2.6 (1.0-3.2); LYMPHOCYTES % 18.5 % (18.0-39.1); MEAN CORPUSCULAR HEMOGLOBIN 29.6 pg (28-32); MEAN CORPUSCULAR HGB CONC 32.2 g/dL (31-35); MEAN CORPUSCULAR VOLUME 91.7 fL (81-99); MONOCYTES # (AUTO) 1.9 (0.2-0.8); MONOCYTES % 13.4 % (4.4-11.3); NEUTROPHILS % 58.2 % (38.7-80.0); PLATELET COUNT 434 x10e3/uL (140-360); RED BLOOD COUNT 3.01 x10e6/uL (3.6-5.1); RED CELL DISTRIBUTION WIDTH 14.2 % (11.7-14.4)
[2020-07-15] MEDS: MIDAZOLAM HCL 5MG/ML 10ML VIAL 100 ML IV SCH ×4 (07:02→21:22)
[2020-07-15 07:07] LABS: ALANINE AMINOTRANSFERASE 38 IU/L (0-55); ALBUMIN/GLOBULIN RATIO 0.8 (0.8-2.0); ALKALINE PHOSPHATASE 52 IU/L (40-150); ANION GAP 13.8 mmol/L (8-16); BLOOD UREA NITROGEN 25 mg/dL (7-26); BUN/CREATININE RATIO 47 (6-25); CALCIUM 8.7 mg/dL (8.4-10.2); CARBON DIOXIDE 35 mmol/L (22-29); CHLORIDE 93 mmol/L (98-107); CREATININE, SERUM 0.53 mg/dL (0.57-1.11); EST GLOMERULAR FILTRATION RATE > 60 ML/MIN (60-); GLUCOSE 110 mg/dL (74-118); SODIUM 139 mmol/L (136-145)
[2020-07-15 07:18] LABS: POTASSIUM 2.8 mmol/L (3.5-5.1)
[2020-07-15] MEDS: FAMOTIDINE 20 MG TAB PO SCH ×2 (07:40→17:39)
[2020-07-15] MEDS: FUROSEMIDE INJ 10 MG/ML 4 ML VIAL IV SCH ×2 (07:41→21:10)
[2020-07-15] MEDS: METHYLPREDNISOLONE SOD SUCC 40 MG/ML VIAL 1ML IV SCH (07:41)
[2020-07-15] MEDS: DOCUSATE SODIUM LIQD 100 MG/10 ML UDC NG SCH (07:41)
[2020-07-15] MEDS: ENOXAPARIN INJ 80 MG/0.8 ML SYR SC SCH ×2 (07:41→21:10)
[2020-07-15] MEDS: ASCORBIC ACID 500 MG TAB PO SCH ×2 (07:41→17:39)
[2020-07-15] MEDS: SENNA-S TABLET PO SCH ×2 (07:41→21:10)
[2020-07-15] MEDS: ACETAZOLAMIDE 250 MG TAB PO SCH ×2 (07:41→21:10)
[2020-07-15] MEDS: CHOLECALCIFEROL 400 UNIT TAB PO SCH (07:41)
[2020-07-15] MEDS: ZINC SULFATE 220 MG CAP PO SCH (07:41)
[2020-07-15] MEDS: KCL 20 MEQ PACKET/ ORAL SOLN NG SCH ×2 (07:41→21:10)
[2020-07-15] MEDS ORDERED: POTASSIUM CHLORIDE 20MEQ/100ML 200 ML IV ONE (08:15)
[2020-07-15 11:32] LABS: ABG HCO3 36 mmol/L (22-26); ABG PCO2 56 mmHg (35-45); ABG PH 7.42 (7.35-7.45); ABG PO2 154 mmHg (80-105); ABG TCO2 38
[2020-07-15] MEDS: PROPOFOL IV EMULSION 10MG/ML 100 ML IV SCH ×2 (13:30→21:21)
[2020-07-15 14:42] LABS: BAND NEUTROPHILS % (MANUAL) 3 %; EOSINOPHILS % (MANUAL) 2 % (0-7); LYMPHOCYTES % (MANUAL) 17 % (19-48); METAMYELOCYTES % (MANUAL) 1 % (0-0); MONOCYTES % (MANUAL) 5 % (3.4-9.0); MYELOCYTES % (MANUAL) 1 % (0-0); NEUTROPHILS % (MANUAL) 69 % (40-74); PROMYELOCYTES % (MANUAL) 1 % (0-0)
[2020-07-15 14:44] LABS: SMUDGE CELLS FEW
[2020-07-15] MEDS ORDERED: NYSTATIN 15 GM POWDER UD BTL TOP PRN (14:45)
[2020-07-15] MEDS ORDERED: MICONAZOLE NITRATE TP SCH (14:45)
[2020-07-15 14:46] LABS: HYPOCHROMASIA SLIGHT; PLATELET ESTIMATE ADEQUATE; PLATELET MORPHOLOGY COMMENT NORMAL
[2020-07-15 16:49] LABS: ABG HCO3 36 mmol/L (22-26); ABG PCO2 62 mmHg (35-45); ABG PH 7.37 (7.35-7.45); ABG PO2 86 mmHg (80-105)
[2020-07-15 16:50] LABS: ABG TCO2 38
[2020-07-16] VITALS (28 sets, daily range): BP systolic 94–153; BP diastolic 47–82
[2020-07-16] MEDS: PROPOFOL IV EMULSION 10MG/ML 100 ML IV SCH ×3 (03:18→21:22)
[2020-07-16] MEDS: FENTANYL 2000MCG/NS 250 250 ML IV SCH ×4 (03:18→23:00)
[2020-07-16] MEDS: MIDAZOLAM HCL 5MG/ML 10ML VIAL 100 ML IV SCH ×4 (04:14→19:38)
[2020-07-16] MEDS: INSULIN REGULAR, HUMAN 100 UNIT/1 ML 3ML VIAL SQ SCH ×4 (06:16→18:00)
[2020-07-16 06:23] LABS: BASOPHILS # (AUTO) 0.1 (0.0-0.1); BASOPHILS % 0.7 % (0.0-1.0); EOSINOPHILS # (AUTO) 0.5 (0.0-0.4); EOSINOPHILS % 3.5 % (0.0-6.0); HEMATOCRIT 30.5 % (34.2-44.1); HEMOGLOBIN 9.6 g/dL (12.0-16.0); LYMPHOCYTES # (AUTO) 2.2 (1.0-3.2); LYMPHOCYTES % 15.7 % (18.0-39.1); MEAN CORPUSCULAR HEMOGLOBIN 29.4 pg (28-32); MEAN CORPUSCULAR HGB CONC 31.5 g/dL (31-35); MEAN CORPUSCULAR VOLUME 93.3 fL (81-99); MONOCYTES # (AUTO) 1.7 (0.2-0.8); MONOCYTES % 12.3 % (4.4-11.3); NEUTROPHILS # (AUTO) 8.4 (2.1-6.9); NEUTROPHILS % 60.6 % (38.7-80.0); PLATELET COUNT 456 x10e3/uL (140-360); RED BLOOD COUNT 3.27 x10e6/uL (3.6-5.1); RED CELL DISTRIBUTION WIDTH 14.3 % (11.7-14.4)
[2020-07-16 06:49] LABS: ALANINE AMINOTRANSFERASE 36 IU/L (0-55); ALBUMIN/GLOBULIN RATIO 0.8 (0.8-2.0); ALKALINE PHOSPHATASE 51 IU/L (40-150); ANION GAP 16.5 mmol/L (8-16); BLOOD UREA NITROGEN 25 mg/dL (7-26); BUN/CREATININE RATIO 50 (6-25); CALCIUM 8.4 mg/dL (8.4-10.2); CARBON DIOXIDE 30 mmol/L (22-29); CHLORIDE 101 mmol/L (98-107); EST GLOMERULAR FILTRATION RATE > 60 ML/MIN (60-); GLUCOSE 139 mg/dL (74-118); POTASSIUM 3.5 mmol/L (3.5-5.1); SODIUM 144 mmol/L (136-145)
[2020-07-16 07:56] LABS: ABG HCO3 32 mmol/L (22-26); ABG PCO2 53 mmHg (35-45); ABG PH 7.39 (7.35-7.45); ABG PO2 72 mmHg (80-105); ABG TCO2 34
[2020-07-16] MEDS: ACETAZOLAMIDE 250 MG TAB PO SCH ×2 (09:08→21:21)
[2020-07-16] MEDS: DOCUSATE SODIUM LIQD 100 MG/10 ML UDC NG SCH (09:08)
[2020-07-16] MEDS: BALSAM PERU/CASTOR OIL 60 GM OINT...G. TP SCH (09:08)
[2020-07-16] MEDS: KCL 20 MEQ PACKET/ ORAL SOLN NG SCH ×2 (09:08→21:21)
[2020-07-16] MEDS: FUROSEMIDE INJ 10 MG/ML 4 ML VIAL IV SCH ×2 (09:08→21:21)
[2020-07-16] MEDS: ASCORBIC ACID 500 MG TAB PO SCH ×2 (09:08→16:55)
[2020-07-16] MEDS: ZINC SULFATE 220 MG CAP PO SCH (09:08)
[2020-07-16] MEDS: CHOLECALCIFEROL 400 UNIT TAB PO SCH (09:08)
[2020-07-16] MEDS: FAMOTIDINE 20 MG TAB PO SCH ×2 (09:08→16:55)
[2020-07-16] MEDS: SENNA-S TABLET PO SCH ×2 (09:08→21:21)
[2020-07-16] MEDS: ENOXAPARIN INJ 80 MG/0.8 ML SYR SC SCH ×2 (09:08→21:21)
[2020-07-16] MEDS: ACETAMINOPHEN 325 MG TAB PO PRN ×2 (09:09→14:44)
[2020-07-16 15:42] LABS: ABG HCO3 35 mmol/L (22-26); ABG PCO2 54 mmHg (35-45); ABG PH 7.42 (7.35-7.45); ABG PO2 100 mmHg (80-105); ABG TCO2 37
[2020-07-16] MEDS ORDERED: VASOPRESSIN 60 UNIT in DEXTROSE 5% 50ML 57 ML IV PRN (16:30)
[2020-07-16] MEDS ORDERED: METHYLPREDNISOLONE SOD SUCC 40 MG/ML VIAL 1ML IV SCH (17:45)
[2020-07-17] VITALS (26 sets, daily range): BP systolic 96–123; BP diastolic 49–62
[2020-07-17] MEDS: INSULIN REGULAR, HUMAN 100 UNIT/1 ML 3ML VIAL SQ SCH ×4 (00:18→18:00)
[2020-07-17] MEDS: MIDAZOLAM HCL 5MG/ML 10ML VIAL 100 ML IV SCH ×4 (00:19→18:54)
[2020-07-17] MEDS: PROPOFOL IV EMULSION 10MG/ML 100 ML IV SCH ×7 (01:52→23:39)
[2020-07-17] MEDS: FENTANYL 2000MCG/NS 250 250 ML IV SCH ×4 (06:01→19:06)
[2020-07-17 06:03] LABS: BASOPHILS # (AUTO) 0.1 (0.0-0.1); BASOPHILS % 0.6 % (0.0-1.0); EOSINOPHILS # (AUTO) 0.3 (0.0-0.4); HEMATOCRIT 30.3 % (34.2-44.1); HEMOGLOBIN 9.8 g/dL (12.0-16.0); LYMPHOCYTES # (AUTO) 2.3 (1.0-3.2); LYMPHOCYTES % 18.4 % (18.0-39.1); MEAN CORPUSCULAR HEMOGLOBIN 29.4 pg (28-32); MEAN CORPUSCULAR HGB CONC 32.3 g/dL (31-35); MONOCYTES # (AUTO) 1.2 (0.2-0.8); MONOCYTES % 9.9 % (4.4-11.3); NEUTROPHILS # (AUTO) 7.7 (2.1-6.9); NEUTROPHILS % 61.9 % (38.7-80.0); PLATELET COUNT 470 x10e3/uL (140-360); RED BLOOD COUNT 3.33 x10e6/uL (3.6-5.1); RED CELL DISTRIBUTION WIDTH 13.8 % (11.7-14.4)
[2020-07-17 06:26] LABS: ALANINE AMINOTRANSFERASE 48 IU/L (0-55); ALBUMIN 2.9 g/dL (3.5-5.0); ALBUMIN/GLOBULIN RATIO 0.8 (0.8-2.0); ALKALINE PHOSPHATASE 64 IU/L (40-150); ANION GAP 13.6 mmol/L (8-16); BLOOD UREA NITROGEN 26 mg/dL (7-26); BUN/CREATININE RATIO 48 (6-25); CALCIUM 8.7 mg/dL (8.4-10.2); CARBON DIOXIDE 31 mmol/L (22-29); CHLORIDE 100 mmol/L (98-107); CREATININE, SERUM 0.54 mg/dL (0.57-1.11); EST GLOMERULAR FILTRATION RATE > 60 ML/MIN (60-); GLUCOSE 125 mg/dL (74-118); POTASSIUM 3.6 mmol/L (3.5-5.1); SODIUM 141 mmol/L (136-145)
[2020-07-17] MEDS: FAMOTIDINE 20 MG TAB PO SCH ×2 (08:58→16:28)
[2020-07-17] MEDS: DOCUSATE SODIUM LIQD 100 MG/10 ML UDC NG SCH (08:58)
[2020-07-17] MEDS: ACETAZOLAMIDE 250 MG TAB PO SCH ×2 (08:59→21:34)
[2020-07-17] MEDS: CHOLECALCIFEROL 400 UNIT TAB PO SCH (08:59)
[2020-07-17] MEDS: ASCORBIC ACID 500 MG TAB PO SCH ×2 (08:59→16:28)
[2020-07-17] MEDS: SENNA-S TABLET PO SCH ×2 (08:59→21:34)
[2020-07-17] MEDS: BALSAM PERU/CASTOR OIL 60 GM OINT...G. TP SCH (08:59)
[2020-07-17] MEDS: ZINC SULFATE 220 MG CAP PO SCH (08:59)
[2020-07-17] MEDS: KCL 20 MEQ PACKET/ ORAL SOLN NG SCH (08:59)
[2020-07-17] MEDS: ENOXAPARIN INJ 80 MG/0.8 ML SYR SC SCH ×2 (08:59→21:34)
[2020-07-17 09:25] LABS: ABG PCO2 51 mmHg (35-45); ABG PH 7.42 (7.35-7.45); ABG PO2 95 mmHg (80-105)
[2020-07-17 09:29] LABS: ABG HCO3 33 mmol/L (22-26)
[2020-07-17 09:30] LABS: ABG TCO2 35
[2020-07-17 16:32] LABS: ABG HCO3 32 mmol/L (22-26); ABG PCO2 51 mmHg (35-45); ABG PH 7.41 (7.35-7.45); ABG PO2 93 mmHg (80-105); ABG TCO2 33
[2020-07-18] VITALS (26 sets, daily range): BP systolic 98–136; BP diastolic 48–84
[2020-07-18] MEDS: MIDAZOLAM HCL 5MG/ML 10ML VIAL 100 ML IV SCH ×2 (00:36→08:14)
[2020-07-18 05:54] LABS: BASOPHILS # (AUTO) 0.1 (0.0-0.1); BASOPHILS % 0.6 % (0.0-1.0); EOSINOPHILS # (AUTO) 0.7 (0.0-0.4); EOSINOPHILS % 5.7 % (0.0-6.0); HEMATOCRIT 30.6 % (34.2-44.1); HEMOGLOBIN 9.6 g/dL (12.0-16.0); LYMPHOCYTES # (AUTO) 2.5 (1.0-3.2); LYMPHOCYTES % 21.6 % (18.0-39.1); MEAN CORPUSCULAR HEMOGLOBIN 29.2 pg (28-32); MEAN CORPUSCULAR HGB CONC 31.4 g/dL (31-35); MONOCYTES # (AUTO) 1.4 (0.2-0.8); MONOCYTES % 11.9 % (4.4-11.3); NEUTROPHILS # (AUTO) 6.1 (2.1-6.9); NEUTROPHILS % 53.6 % (38.7-80.0); PLATELET COUNT 414 x10e3/uL (140-360); RED BLOOD COUNT 3.29 x10e6/uL (3.6-5.1); RED CELL DISTRIBUTION WIDTH 14.4 % (11.7-14.4)
[2020-07-18] MEDS: INSULIN REGULAR, HUMAN 100 UNIT/1 ML 3ML VIAL SQ SCH ×4 (06:00→18:00)
[2020-07-18 06:41] LABS: ALANINE AMINOTRANSFERASE 46 IU/L (0-55); ALBUMIN 2.8 g/dL (3.5-5.0); ALBUMIN/GLOBULIN RATIO 0.8 (0.8-2.0); ALKALINE PHOSPHATASE 55 IU/L (40-150); ANION GAP 12.8 mmol/L (8-16); BLOOD UREA NITROGEN 26 mg/dL (7-26); BUN/CREATININE RATIO 51 (6-25); CALCIUM 8.2 mg/dL (8.4-10.2); CARBON DIOXIDE 29 mmol/L (22-29); CHLORIDE 105 mmol/L (98-107); CREATININE, SERUM 0.51 mg/dL (0.57-1.11); EST GLOMERULAR FILTRATION RATE > 60 ML/MIN (60-); GLUCOSE 111 mg/dL (74-118); POTASSIUM 3.8 mmol/L (3.5-5.1); SODIUM 143 mmol/L (136-145)
[2020-07-18 07:55] LABS: ABG HCO3 31 mmol/L (22-26); ABG PCO2 51 mmHg (35-45); ABG PH 7.39 (7.35-7.45); ABG PO2 73 mmHg (80-105); ABG TCO2 32
[2020-07-18 08:12] LABS: BAND NEUTROPHILS % (MANUAL) 67 %; EOSINOPHILS % (MANUAL) 100 % (0-7); LYMPHOCYTES % (MANUAL) 767 % (19-48); METAMYELOCYTES % (MANUAL) 33 % (0-0); MONOCYTES % (MANUAL) 233 % (3.4-9.0); NEUTROPHILS % (MANUAL) 2133 % (40-74); PLATELET MORPHOLOGY COMMENT NORMAL; SMUDGE CELLS FEW
[2020-07-18 08:13] LABS: ANISOCYTOSIS SLIG; HYPOCHROMASIA SLIGHT; MICROCYTOSIS SLIG; PLATELET ESTIMATE ADEQUATE; POIKILOCYTOSIS SLIGHT
[2020-07-18 08:15] LABS: RBC MORPHOLOGY COMMENT ABNORMAL
[2020-07-18] MEDS: ASCORBIC ACID 500 MG TAB PO SCH ×2 (08:35→18:07)
[2020-07-18] MEDS: ENOXAPARIN INJ 80 MG/0.8 ML SYR SC SCH ×2 (08:35→21:49)
[2020-07-18] MEDS: SENNA-S TABLET PO SCH ×2 (08:35→21:49)
[2020-07-18] MEDS: CHOLECALCIFEROL 400 UNIT TAB PO SCH (08:35)
[2020-07-18] MEDS: ACETAZOLAMIDE 250 MG TAB PO SCH ×2 (08:35→21:49)
[2020-07-18] MEDS: FAMOTIDINE 20 MG TAB PO SCH ×2 (08:35→18:07)
[2020-07-18] MEDS: DOCUSATE SODIUM LIQD 100 MG/10 ML UDC NG SCH (08:35)
[2020-07-18] MEDS: ZINC SULFATE 220 MG CAP PO SCH (08:35)
[2020-07-18] MEDS: BALSAM PERU/CASTOR OIL 60 GM OINT...G. TP SCH (08:35)
[2020-07-18] MEDS: ACETAMINOPHEN 325 MG TAB PO PRN (08:36)
[2020-07-18] MEDS: FUROSEMIDE INJ 10 MG/ML 4 ML VIAL IV SCH (09:43)
[2020-07-18] MEDS: PROPOFOL IV EMULSION 10MG/ML 100 ML IV SCH ×4 (10:15→21:00)
[2020-07-18 11:02] LABS: ABG HCO3 30 mmol/L (22-26); ABG PCO2 46 mmHg (35-45); ABG PH 7.42 (7.35-7.45); ABG PO2 84 mmHg (80-105); ABG TCO2 31
[2020-07-18] MEDS: FENTANYL 2000MCG/NS 250 250 ML IV SCH ×3 (12:27→20:00)
[2020-07-18] MEDS: MIDAZOLAM HCL 5MG/ML 10ML VIAL 100 ML IV PRN (20:00)
[2020-07-19] VITALS (27 sets, daily range): BP systolic 91–131; BP diastolic 47–81
[2020-07-19] MEDS: PROPOFOL IV EMULSION 10MG/ML 100 ML IV SCH ×7 (02:00→23:00)
[2020-07-19] MEDS ORDERED: PROPOFOL IV EMULSION 50 ML IV ONE (02:25)
[2020-07-19] MEDS: FENTANYL 2000MCG/NS 250 250 ML IV SCH ×2 (05:20→15:01)
[2020-07-19 05:38] LABS: BASOPHILS # (AUTO) 0.1 (0.0-0.1); BASOPHILS % 0.6 % (0.0-1.0); EOSINOPHILS # (AUTO) 0.7 (0.0-0.4); EOSINOPHILS % 6.1 % (0.0-6.0); HEMATOCRIT 31.7 % (34.2-44.1); HEMOGLOBIN 9.9 g/dL (12.0-16.0); LYMPHOCYTES # (AUTO) 2.3 (1.0-3.2); LYMPHOCYTES % 18.9 % (18.0-39.1); MEAN CORPUSCULAR HEMOGLOBIN 28.7 pg (28-32); MEAN CORPUSCULAR HGB CONC 31.2 g/dL (31-35); MEAN CORPUSCULAR VOLUME 91.9 fL (81-99); MONOCYTES # (AUTO) 1.5 (0.2-0.8); MONOCYTES % 12.4 % (4.4-11.3); NEUTROPHILS # (AUTO) 6.7 (2.1-6.9); NEUTROPHILS % 55.3 % (38.7-80.0); PLATELET COUNT 415 x10e3/uL (140-360); RED BLOOD COUNT 3.45 x10e6/uL (3.6-5.1); RED CELL DISTRIBUTION WIDTH 14.5 % (11.7-14.4)
[2020-07-19] MEDS: INSULIN REGULAR, HUMAN 100 UNIT/1 ML 3ML VIAL SQ SCH ×4 (05:58→18:37)
[2020-07-19 06:03] LABS: ALANINE AMINOTRANSFERASE 43 IU/L (0-55); ALBUMIN/GLOBULIN RATIO 0.9 (0.8-2.0); ALKALINE PHOSPHATASE 59 IU/L (40-150); ANION GAP 14.3 mmol/L (8-16); BLOOD UREA NITROGEN 25 mg/dL (7-26); BUN/CREATININE RATIO 52 (6-25); CALCIUM 8.2 mg/dL (8.4-10.2); CARBON DIOXIDE 26 mmol/L (22-29); CHLORIDE 105 mmol/L (98-107); CREATININE, SERUM 0.48 mg/dL (0.57-1.11); EST GLOMERULAR FILTRATION RATE > 60 ML/MIN (60-); GLUCOSE 118 mg/dL (74-118); POTASSIUM 3.3 mmol/L (3.5-5.1); SODIUM 142 mmol/L (136-145)
[2020-07-19 09:17] LABS: ABG HCO3 28 mmol/L (22-26); ABG PCO2 46 mmHg (35-45); ABG PH 7.39 (7.35-7.45); ABG PO2 80 mmHg (80-105); ABG TCO2 29
[2020-07-19] MEDS: FAMOTIDINE 20 MG TAB PO SCH ×2 (09:21→17:13)
[2020-07-19] MEDS: ASCORBIC ACID 500 MG TAB PO SCH ×2 (09:21→17:13)
[2020-07-19] MEDS: CHOLECALCIFEROL 400 UNIT TAB PO SCH (09:21)
[2020-07-19] MEDS: ENOXAPARIN INJ 80 MG/0.8 ML SYR SC SCH ×2 (09:21→21:34)
[2020-07-19] MEDS: ACETAZOLAMIDE 250 MG TAB PO SCH ×2 (09:21→21:34)
[2020-07-19] MEDS: BALSAM PERU/CASTOR OIL 60 GM OINT...G. TP SCH (09:21)
[2020-07-19] MEDS: FUROSEMIDE INJ 10 MG/ML 4 ML VIAL IV SCH (09:21)
[2020-07-19] MEDS: DOCUSATE SODIUM LIQD 100 MG/10 ML UDC NG SCH (09:21)
[2020-07-19] MEDS: ZINC SULFATE 220 MG CAP PO SCH (09:21)
[2020-07-19] MEDS: SENNA-S TABLET PO SCH ×2 (09:21→21:00)
[2020-07-19] MEDS: MIDAZOLAM HCL 5MG/ML 10ML VIAL 100 ML IV PRN (09:22)
[2020-07-19] MEDS ORDERED: POTASSIUM CHLORIDE 20 MEQ TAB CR PO ONE (13:30)
[2020-07-20] VITALS (24 sets, daily range): BP systolic 93–132; BP diastolic 58–97
[2020-07-20] MEDS: MIDAZOLAM HCL 5MG/ML 10ML VIAL 100 ML IV PRN
[2020-07-20] MEDS: FENTANYL 2000MCG/NS 250 250 ML IV SCH ×3 (01:30→22:06)
[2020-07-20] MEDS: PROPOFOL IV EMULSION 10MG/ML 100 ML IV SCH ×5 (02:45→21:56)
[2020-07-20] MEDS: INSULIN REGULAR, HUMAN 100 UNIT/1 ML 3ML VIAL SQ SCH ×4 (06:00→17:46)
[2020-07-20 06:18] LABS: BASOPHILS # (AUTO) 0.1 (0.0-0.1); BASOPHILS % 0.5 % (0.0-1.0); EOSINOPHILS # (AUTO) 0.8 (0.0-0.4); EOSINOPHILS % 7.6 % (0.0-6.0); HEMATOCRIT 31.8 % (34.2-44.1); LYMPHOCYTES # (AUTO) 2.3 (1.0-3.2); LYMPHOCYTES % 21.6 % (18.0-39.1); MEAN CORPUSCULAR HEMOGLOBIN 29.3 pg (28-32); MEAN CORPUSCULAR HGB CONC 31.4 g/dL (31-35); MEAN CORPUSCULAR VOLUME 93.3 fL (81-99); MONOCYTES # (AUTO) 1.2 (0.2-0.8); MONOCYTES % 11.7 % (4.4-11.3); NEUTROPHILS # (AUTO) 5.6 (2.1-6.9); NEUTROPHILS % 52.8 % (38.7-80.0); PLATELET COUNT 415 x10e3/uL (140-360); RED BLOOD COUNT 3.41 x10e6/uL (3.6-5.1); RED CELL DISTRIBUTION WIDTH 14.9 % (11.7-14.4)
[2020-07-20 06:44] LABS: ALANINE AMINOTRANSFERASE 44 IU/L (0-55); ALBUMIN/GLOBULIN RATIO 0.9 (0.8-2.0); ALKALINE PHOSPHATASE 61 IU/L (40-150); ANION GAP 12.3 mmol/L (8-16); BLOOD UREA NITROGEN 24 mg/dL (7-26); BUN/CREATININE RATIO 49 (6-25); CALCIUM 8.3 mg/dL (8.4-10.2); CARBON DIOXIDE 27 mmol/L (22-29); CHLORIDE 105 mmol/L (98-107); CREATININE, SERUM 0.49 mg/dL (0.57-1.11); EST GLOMERULAR FILTRATION RATE > 60 ML/MIN (60-); GLUCOSE 115 mg/dL (74-118); POTASSIUM 3.3 mmol/L (3.5-5.1); SODIUM 141 mmol/L (136-145)
[2020-07-20 07:43] LABS: EOSINOPHILS % (MANUAL) 13 % (0-7); LYMPHOCYTES % (MANUAL) 18 % (19-48); MONOCYTES % (MANUAL) 9 % (3.4-9.0); MYELOCYTES % (MANUAL) 2 % (0-0); NEUTROPHILS % (MANUAL) 57 % (40-74)
[2020-07-20 07:44] LABS: ANISOCYTOSIS SLIGHT; PLATELET ESTIMATE SLIGHTLY INCREASED; PLATELET MORPHOLOGY COMMENT NORMAL; RBC MORPHOLOGY COMMENT NORMAL
[2020-07-20] MEDS: FAMOTIDINE 20 MG TAB PO SCH ×2 (07:56→17:46)
[2020-07-20] MEDS: ASCORBIC ACID 500 MG TAB PO SCH ×2 (07:56→17:46)
[2020-07-20] MEDS: SENNA-S TABLET PO SCH ×2 (07:56→21:00)
[2020-07-20] MEDS: POTASSIUM CHLORIDE 20MEQ/100ML 200 ML IV PRN (07:56)
[2020-07-20] MEDS: ENOXAPARIN INJ 80 MG/0.8 ML SYR SC SCH (07:56)
[2020-07-20] MEDS: CHOLECALCIFEROL 400 UNIT TAB PO SCH (07:56)
[2020-07-20] MEDS: FUROSEMIDE INJ 10 MG/ML 4 ML VIAL IV SCH (07:56)
[2020-07-20] MEDS: DOCUSATE SODIUM LIQD 100 MG/10 ML UDC NG SCH (07:56)
[2020-07-20] MEDS: ZINC SULFATE 220 MG CAP PO SCH (07:56)
[2020-07-20] MEDS: BALSAM PERU/CASTOR OIL 60 GM OINT...G. TP SCH (07:56)
[2020-07-20] MEDS: ACETAZOLAMIDE 250 MG TAB PO SCH ×2 (07:56→21:56)
[2020-07-20] MEDS: ACETAMINOPHEN 325 MG TAB PO PRN (08:12)
[2020-07-20 14:25] LABS: INR 0.96; PROTHROMBIN TIME 13.4 seconds (11.9-14.5)
[2020-07-21] VITALS (24 sets, daily range): BP systolic 90–144; BP diastolic 60–90
[2020-07-21] MEDS: PROPOFOL IV EMULSION 10MG/ML 100 ML IV SCH ×5 (02:36→16:29)
[2020-07-21 05:51] LABS: BASOPHILS % 0.3 % (0.0-1.0); EOSINOPHILS # (AUTO) 0.7 (0.0-0.4); EOSINOPHILS % 7.5 % (0.0-6.0); HEMATOCRIT 30.9 % (34.2-44.1); HEMOGLOBIN 9.7 g/dL (12.0-16.0); LYMPHOCYTES # (AUTO) 1.4 (1.0-3.2); LYMPHOCYTES % 15.5 % (18.0-39.1); MEAN CORPUSCULAR HEMOGLOBIN 29.2 pg (28-32); MEAN CORPUSCULAR HGB CONC 31.4 g/dL (31-35); MEAN CORPUSCULAR VOLUME 93.1 fL (81-99); MONOCYTES # (AUTO) 1.1 (0.2-0.8); MONOCYTES % 11.4 % (4.4-11.3); NEUTROPHILS # (AUTO) 5.5 (2.1-6.9); PLATELET COUNT 381 x10e3/uL (140-360); RED BLOOD COUNT 3.32 x10e6/uL (3.6-5.1); RED CELL DISTRIBUTION WIDTH 14.8 % (11.7-14.4)
[2020-07-21] MEDS: INSULIN REGULAR, HUMAN 100 UNIT/1 ML 3ML VIAL SQ SCH ×4 (06:00→18:00)
[2020-07-21 06:12] LABS: ALANINE AMINOTRANSFERASE 41 IU/L (0-55); ALBUMIN/GLOBULIN RATIO 0.9 (0.8-2.0); ALKALINE PHOSPHATASE 60 IU/L (40-150); ANION GAP 14.3 mmol/L (8-16); BLOOD UREA NITROGEN 23 mg/dL (7-26); BUN/CREATININE RATIO 49 (6-25); CALCIUM 8.3 mg/dL (8.4-10.2); CARBON DIOXIDE 26 mmol/L (22-29); CHLORIDE 104 mmol/L (98-107); CREATININE, SERUM 0.47 mg/dL (0.57-1.11); EST GLOMERULAR FILTRATION RATE > 60 ML/MIN (60-); GLUCOSE 112 mg/dL (74-118); POTASSIUM 3.3 mmol/L (3.5-5.1); SODIUM 141 mmol/L (136-145)
[2020-07-21] MEDS: DOCUSATE SODIUM LIQD 100 MG/10 ML UDC NG SCH (07:19)
[2020-07-21] MEDS: ACETAZOLAMIDE 250 MG TAB PO SCH ×3 (07:19→23:21)
[2020-07-21] MEDS: FAMOTIDINE 20 MG TAB PO SCH (07:19)
[2020-07-21] MEDS: SENNA-S TABLET PO SCH ×2 (07:19→21:00)
[2020-07-21] MEDS: CHOLECALCIFEROL 400 UNIT TAB PO SCH (07:19)
[2020-07-21] MEDS: BALSAM PERU/CASTOR OIL 60 GM OINT...G. TP SCH (07:57)
[2020-07-21] MEDS: FUROSEMIDE INJ 10 MG/ML 4 ML VIAL IV SCH (08:03)
[2020-07-21] MEDS: FENTANYL 2000MCG/NS 250 250 ML IV SCH ×2 (08:03→21:04)
[2020-07-21] MEDS: POTASSIUM CHLORIDE 20MEQ/100ML 200 ML IV PRN (08:04)
[2020-07-21] MEDS ORDERED: POTASSIUM CHLORIDE 20MEQ/100ML 100 ML IV ONE (09:00)
[2020-07-21] MEDS ORDERED: SODIUM CHLORIDE 0.9% 1000ML 1,000 ML ONE (13:29)
[2020-07-21] MEDS ORDERED: BUPIVACAINE 0.5%/EPI 30 ML SDV INJ ONE (13:57)
[2020-07-21] MEDS ORDERED: SEVOFLURANE INHAL SOLN 250 ML PEN BTL ONE (13:59)
[2020-07-21] MEDS ORDERED: POVIDONE IODINE 0.05% 0.05 % ML PO ONE (13:59)
[2020-07-21] MEDS ORDERED: PROPOFOL IV EMULSION 10 MG/ML 20 ML VIAL ONE (13:59)
[2020-07-21] MEDS ORDERED: LIDOCAINE HCL 2% LOCAL INJ 5 ML SDV VIAL INJ ONE (13:59)
[2020-07-21] MEDS: LORAZEPAM INJ 2 MG/ML VIAL IV PRN (16:29)
[2020-07-22] VITALS (27 sets, daily range): BP systolic 101–147; BP diastolic 56–93
[2020-07-22] MEDS: LORAZEPAM INJ 2 MG/ML VIAL IV PRN (03:37)
[2020-07-22] MEDS: INSULIN REGULAR, HUMAN 100 UNIT/1 ML 3ML VIAL SQ SCH ×4 (05:59→18:00)
[2020-07-22 06:10] LABS: BASOPHILS % 0.3 % (0.0-1.0); EOSINOPHILS # (AUTO) 0.6 (0.0-0.4); EOSINOPHILS % 6.2 % (0.0-6.0); HEMOGLOBIN 9.6 g/dL (12.0-16.0); LYMPHOCYTES # (AUTO) 1.5 (1.0-3.2); LYMPHOCYTES % 14.5 % (18.0-39.1); MEAN CORPUSCULAR HEMOGLOBIN 29.5 pg (28-32); MEAN CORPUSCULAR VOLUME 92.3 fL (81-99); MONOCYTES # (AUTO) 1.2 (0.2-0.8); MONOCYTES % 11.8 % (4.4-11.3); NEUTROPHILS # (AUTO) 6.3 (2.1-6.9); NEUTROPHILS % 62.9 % (38.7-80.0); PLATELET COUNT 329 x10e3/uL (140-360); RED BLOOD COUNT 3.25 x10e6/uL (3.6-5.1); RED CELL DISTRIBUTION WIDTH 15.1 % (11.7-14.4)
[2020-07-22 06:52] LABS: ALANINE AMINOTRANSFERASE 43 IU/L (0-55); ALBUMIN 2.9 g/dL (3.5-5.0); ALBUMIN/GLOBULIN RATIO 0.9 (0.8-2.0); ALKALINE PHOSPHATASE 70 IU/L (40-150); ANION GAP 14.2 mmol/L (8-16); BLOOD UREA NITROGEN 16 mg/dL (7-26); BUN/CREATININE RATIO 36 (6-25); CALCIUM 8.4 mg/dL (8.4-10.2); CARBON DIOXIDE 26 mmol/L (22-29); CHLORIDE 103 mmol/L (98-107); CREATININE, SERUM 0.45 mg/dL (0.57-1.11); EST GLOMERULAR FILTRATION RATE > 60 ML/MIN (60-); GLUCOSE 99 mg/dL (74-118); POTASSIUM 3.2 mmol/L (3.5-5.1); SODIUM 140 mmol/L (136-145)
[2020-07-22] MEDS: SENNA-S TABLET PO SCH ×2 (08:01→20:14)
[2020-07-22] MEDS: ACETAZOLAMIDE 250 MG TAB PO SCH ×2 (08:01→20:29)
[2020-07-22] MEDS: DOCUSATE SODIUM LIQD 100 MG/10 ML UDC NG SCH (08:01)
[2020-07-22] MEDS: FUROSEMIDE INJ 10 MG/ML 4 ML VIAL IV SCH (08:38)
[2020-07-22] MEDS: BALSAM PERU/CASTOR OIL 60 GM OINT...G. TP SCH (08:38)
[2020-07-22] MEDS ORDERED: POTASSIUM CHLORIDE 20MEQ/15ML UDC NG NR (13:30)
[2020-07-22] MEDS ORDERED: KCL 20 MEQ PACKET/ ORAL SOLN NG NR (13:45)
[2020-07-22] MEDS: PROPOFOL IV EMULSION 10MG/ML 100 ML IV SCH ×4 (13:52→20:30)
[2020-07-22] MEDS: IBUPROFEN 100 MG/5 ML SUSP PO PRN (13:56)
[2020-07-22] MEDS: ENOXAPARIN INJ 80 MG/0.8 ML SYR SC SCH (20:29)
[2020-07-22] MEDS: FENTANYL 2000MCG/NS 250 250 ML IV SCH (23:30)
[2020-07-23] VITALS (27 sets, daily range): BP systolic 96–147; BP diastolic 47–102
[2020-07-23] MEDS: PROPOFOL IV EMULSION 10MG/ML 100 ML IV SCH ×5 (00:14→22:50)
[2020-07-23 05:12] LABS: BASOPHILS % 0.3 % (0.0-1.0); EOSINOPHILS # (AUTO) 0.4 (0.0-0.4); EOSINOPHILS % 3.5 % (0.0-6.0); HEMATOCRIT 29.7 % (34.2-44.1); HEMOGLOBIN 9.5 g/dL (12.0-16.0); LYMPHOCYTES # (AUTO) 1.8 (1.0-3.2); LYMPHOCYTES % 17.7 % (18.0-39.1); MEAN CORPUSCULAR HEMOGLOBIN 29.5 pg (28-32); MEAN CORPUSCULAR VOLUME 92.2 fL (81-99); MONOCYTES # (AUTO) 1.3 (0.2-0.8); NEUTROPHILS # (AUTO) 6.4 (2.1-6.9); NEUTROPHILS % 62.4 % (38.7-80.0); PLATELET COUNT 342 x10e3/uL (140-360); RED BLOOD COUNT 3.22 x10e6/uL (3.6-5.1); RED CELL DISTRIBUTION WIDTH 15.3 % (11.7-14.4)
[2020-07-23 05:31] LABS: ALANINE AMINOTRANSFERASE 41 IU/L (0-55); ALBUMIN 2.9 g/dL (3.5-5.0); ALBUMIN/GLOBULIN RATIO 0.8 (0.8-2.0); ALKALINE PHOSPHATASE 69 IU/L (40-150); ANION GAP 15.1 mmol/L (8-16); BLOOD UREA NITROGEN 15 mg/dL (7-26); BUN/CREATININE RATIO 34 (6-25); CALCIUM 8.4 mg/dL (8.4-10.2); CARBON DIOXIDE 26 mmol/L (22-29); CHLORIDE 103 mmol/L (98-107); CREATININE, SERUM 0.44 mg/dL (0.57-1.11); EST GLOMERULAR FILTRATION RATE > 60 ML/MIN (60-); GLUCOSE 100 mg/dL (74-118); POTASSIUM 3.1 mmol/L (3.5-5.1); SODIUM 141 mmol/L (136-145)
[2020-07-23] MEDS: INSULIN REGULAR, HUMAN 100 UNIT/1 ML 3ML VIAL SQ SCH ×4 (05:41→17:53)
[2020-07-23] MEDS: DOCUSATE SODIUM LIQD 100 MG/10 ML UDC NG SCH (08:24)
[2020-07-23] MEDS: SENNA-S TABLET PO SCH ×2 (08:25→18:53)
[2020-07-23] MEDS: FUROSEMIDE INJ 10 MG/ML 4 ML VIAL IV SCH (08:37)
[2020-07-23] MEDS: ENOXAPARIN INJ 80 MG/0.8 ML SYR SC SCH ×2 (08:37→21:24)
[2020-07-23] MEDS: ACETAZOLAMIDE 250 MG TAB PO SCH ×2 (08:37→21:24)
[2020-07-23] MEDS: KCL 20 MEQ PACKET/ ORAL SOLN NG SCH (08:37)
[2020-07-23] MEDS: BALSAM PERU/CASTOR OIL 60 GM OINT...G. TP SCH (08:37)
[2020-07-23] MEDS ORDERED: POTASSIUM CHLORIDE 20MEQ/100ML 200 ML IV ONE (09:15)
[2020-07-23] MEDS ORDERED: NEOMYCIN/POLYMYXIN/BACITRACIN 15 GM TUBE TOP PRN (10:15)
[2020-07-23] MEDS ORDERED: MIDAZOLAM HCL 2 MG/2 ML VIAL ONE (14:04)
[2020-07-23] MEDS ORDERED: FENTANYL CITRATE/PF 100MCG/2 ML INJ ONE (14:04)
[2020-07-23] MEDS: FENTANYL 2000MCG/NS 250 250 ML IV SCH (15:20)
[2020-07-24] VITALS (24 sets, daily range): BP systolic 108–159; BP diastolic 57–107
[2020-07-24] MEDS: FENTANYL 2000MCG/NS 250 250 ML IV SCH (01:37)
[2020-07-24] MEDS: PROPOFOL IV EMULSION 10MG/ML 100 ML IV SCH ×6 (02:30→23:55)
[2020-07-24 04:45] LABS: BASOPHILS % 0.3 % (0.0-1.0); EOSINOPHILS # (AUTO) 0.2 (0.0-0.4); EOSINOPHILS % 2.1 % (0.0-6.0); LYMPHOCYTES # (AUTO) 1.8 (1.0-3.2); LYMPHOCYTES % 16.3 % (18.0-39.1); MEAN CORPUSCULAR HEMOGLOBIN 28.9 pg (28-32); MEAN CORPUSCULAR VOLUME 93.2 fL (81-99); MONOCYTES # (AUTO) 1.3 (0.2-0.8); MONOCYTES % 12.1 % (4.4-11.3); NEUTROPHILS # (AUTO) 7.3 (2.1-6.9); NEUTROPHILS % 67.4 % (38.7-80.0); PLATELET COUNT 330 x10e3/uL (140-360); RED BLOOD COUNT 3.11 x10e6/uL (3.6-5.1); RED CELL DISTRIBUTION WIDTH 15.2 % (11.7-14.4)
[2020-07-24 05:15] LABS: ALANINE AMINOTRANSFERASE 33 IU/L (0-55); ALBUMIN 2.8 g/dL (3.5-5.0); ALBUMIN/GLOBULIN RATIO 0.8 (0.8-2.0); ALKALINE PHOSPHATASE 67 IU/L (40-150); BLOOD UREA NITROGEN 16 mg/dL (7-26); BUN/CREATININE RATIO 35 (6-25); CALCIUM 8.7 mg/dL (8.4-10.2); CARBON DIOXIDE 28 mmol/L (22-29); CHLORIDE 104 mmol/L (98-107); CREATININE, SERUM 0.46 mg/dL (0.57-1.11); EST GLOMERULAR FILTRATION RATE > 60 ML/MIN (60-); GLUCOSE 95 mg/dL (74-118); SODIUM 142 mmol/L (136-145)
[2020-07-24] MEDS: INSULIN REGULAR, HUMAN 100 UNIT/1 ML 3ML VIAL SQ SCH ×5 (06:00→23:50)
[2020-07-24] MEDS: POTASSIUM CHLORIDE 20MEQ/100ML 200 ML IV PRN (06:00)
[2020-07-24] MEDS: SENNA-S TABLET PO SCH ×2 (07:47→20:30)
[2020-07-24] MEDS: DOCUSATE SODIUM LIQD 100 MG/10 ML UDC NG SCH (07:47)
[2020-07-24] MEDS: ACETAZOLAMIDE 250 MG TAB PO SCH ×2 (09:16→20:30)
[2020-07-24] MEDS: KCL 20 MEQ PACKET/ ORAL SOLN NG SCH (09:16)
[2020-07-24] MEDS: ENOXAPARIN INJ 80 MG/0.8 ML SYR SC SCH ×2 (09:16→20:30)
[2020-07-24] MEDS: FUROSEMIDE INJ 10 MG/ML 4 ML VIAL IV SCH (09:16)
[2020-07-24] MEDS: BALSAM PERU/CASTOR OIL 60 GM OINT...G. TP SCH (09:16)
[2020-07-24] MEDS: LORAZEPAM INJ 2 MG/ML VIAL IV PRN ×2 (10:33→23:40)
[2020-07-24] MEDS: ACETAMINOPHEN 325 MG/10 ML UDC NG PRN (20:30)
[2020-07-25] VITALS (27 sets, daily range): BP systolic 101–137; BP diastolic 60–89
[2020-07-25] MEDS: PROPOFOL IV EMULSION 10MG/ML 100 ML IV SCH ×7 (01:44→22:55)
[2020-07-25] MEDS: INSULIN REGULAR, HUMAN 100 UNIT/1 ML 3ML VIAL SQ SCH ×4 (06:00→23:38)
[2020-07-25 06:02] LABS: BASOPHILS % 0.3 % (0.0-1.0); EOSINOPHILS # (AUTO) 0.2 (0.0-0.4); EOSINOPHILS % 1.7 % (0.0-6.0); HEMATOCRIT 30.5 % (34.2-44.1); HEMOGLOBIN 9.5 g/dL (12.0-16.0); LYMPHOCYTES # (AUTO) 1.9 (1.0-3.2); LYMPHOCYTES % 20.3 % (18.0-39.1); MEAN CORPUSCULAR HGB CONC 31.1 g/dL (31-35); MONOCYTES # (AUTO) 1.2 (0.2-0.8); MONOCYTES % 12.4 % (4.4-11.3); NEUTROPHILS # (AUTO) 5.9 (2.1-6.9); NEUTROPHILS % 63.8 % (38.7-80.0); PLATELET COUNT 355 x10e3/uL (140-360); RED BLOOD COUNT 3.28 x10e6/uL (3.6-5.1); RED CELL DISTRIBUTION WIDTH 14.8 % (11.7-14.4)
[2020-07-25 06:31] LABS: ALANINE AMINOTRANSFERASE 30 IU/L (0-55); ALBUMIN 2.9 g/dL (3.5-5.0); ALBUMIN/GLOBULIN RATIO 0.7 (0.8-2.0); ALKALINE PHOSPHATASE 68 IU/L (40-150); ANION GAP 15.2 mmol/L (8-16); BLOOD UREA NITROGEN 20 mg/dL (7-26); BUN/CREATININE RATIO 44 (6-25); CALCIUM 8.9 mg/dL (8.4-10.2); CARBON DIOXIDE 26 mmol/L (22-29); CHLORIDE 104 mmol/L (98-107); CREATININE, SERUM 0.45 mg/dL (0.57-1.11); EST GLOMERULAR FILTRATION RATE > 60 ML/MIN (60-); GLUCOSE 100 mg/dL (74-118); POTASSIUM 3.2 mmol/L (3.5-5.1); SODIUM 142 mmol/L (136-145)
[2020-07-25] MEDS: DOCUSATE SODIUM LIQD 100 MG/10 ML UDC NG SCH (08:37)
[2020-07-25] MEDS: SENNA-S TABLET PO SCH ×2 (08:37→20:31)
[2020-07-25] MEDS: FUROSEMIDE 40 MG TAB PO SCH (08:50)
[2020-07-25] MEDS: KCL 20 MEQ PACKET/ ORAL SOLN NG SCH (08:50)
[2020-07-25] MEDS: BALSAM PERU/CASTOR OIL 60 GM OINT...G. TP SCH (08:50)
[2020-07-25] MEDS: ENOXAPARIN INJ 80 MG/0.8 ML SYR SC SCH ×2 (08:50→20:31)
[2020-07-25] MEDS: ACETAZOLAMIDE 250 MG TAB PO SCH (08:50)
[2020-07-25] MEDS: LORAZEPAM INJ 2 MG/ML VIAL IV PRN ×2 (16:32→20:15)
[2020-07-26] VITALS (24 sets, daily range): BP systolic 90–124; BP diastolic 58–84
[2020-07-26] MEDS ORDERED: PROPOFOL IV EMULSION 100 ML IV ONE ×2 (02:22→03:54)
[2020-07-26] MEDS: PROPOFOL IV EMULSION 10MG/ML 100 ML IV SCH ×3 (03:14→20:35)
[2020-07-26] MEDS: ACETAMINOPHEN 325 MG/10 ML UDC NG PRN ×2 (05:33→09:52)
[2020-07-26 05:51] LABS: BASOPHILS # (AUTO) 0.1 (0.0-0.1); BASOPHILS % 0.7 % (0.0-1.0); EOSINOPHILS # (AUTO) 0.2 (0.0-0.4); EOSINOPHILS % 2.5 % (0.0-6.0); HEMATOCRIT 31.6 % (34.2-44.1); HEMOGLOBIN 9.7 g/dL (12.0-16.0); LYMPHOCYTES # (AUTO) 1.8 (1.0-3.2); LYMPHOCYTES % 22.7 % (18.0-39.1); MEAN CORPUSCULAR HEMOGLOBIN 28.5 pg (28-32); MEAN CORPUSCULAR HGB CONC 30.7 g/dL (31-35); MEAN CORPUSCULAR VOLUME 92.9 fL (81-99); MONOCYTES % 11.9 % (4.4-11.3); NEUTROPHILS % 61.1 % (38.7-80.0); PLATELET COUNT 350 x10e3/uL (140-360); RED CELL DISTRIBUTION WIDTH 14.7 % (11.7-14.4)
[2020-07-26] MEDS: INSULIN REGULAR, HUMAN 100 UNIT/1 ML 3ML VIAL SQ SCH ×3 (06:00→18:00)
[2020-07-26 06:10] LABS: ALANINE AMINOTRANSFERASE 30 IU/L (0-55); ALBUMIN 2.9 g/dL (3.5-5.0); ALBUMIN/GLOBULIN RATIO 0.8 (0.8-2.0); ALKALINE PHOSPHATASE 72 IU/L (40-150); ANION GAP 14.1 mmol/L (8-16); BLOOD UREA NITROGEN 20 mg/dL (7-26); BUN/CREATININE RATIO 42 (6-25); CALCIUM 8.7 mg/dL (8.4-10.2); CARBON DIOXIDE 26 mmol/L (22-29); CHLORIDE 104 mmol/L (98-107); CREATININE, SERUM 0.48 mg/dL (0.57-1.11); EST GLOMERULAR FILTRATION RATE > 60 ML/MIN (60-); GLUCOSE 105 mg/dL (74-118); POTASSIUM 3.1 mmol/L (3.5-5.1); SODIUM 141 mmol/L (136-145)
[2020-07-26] MEDS: DOCUSATE SODIUM LIQD 100 MG/10 ML UDC NG SCH (07:38)
[2020-07-26] MEDS: SENNA-S TABLET PO SCH ×2 (07:39→20:34)
[2020-07-26] MEDS ORDERED: PROPOFOL IV EMULSION 50 ML IV ONE (07:40)
[2020-07-26] MEDS: BALSAM PERU/CASTOR OIL 60 GM OINT...G. TP SCH (09:01)
[2020-07-26] MEDS: ENOXAPARIN INJ 80 MG/0.8 ML SYR SC SCH ×2 (09:01→21:30)
[2020-07-26] MEDS: KCL 20 MEQ PACKET/ ORAL SOLN NG SCH (09:01)
[2020-07-26] MEDS: FUROSEMIDE 40 MG TAB PO SCH (09:01)
[2020-07-26] MEDS ORDERED: POTASSIUM CHLORIDE 20MEQ/100ML 200 ML IV ONE (10:30)
[2020-07-26] MEDS: LORAZEPAM 0.5 MG TAB PO PRN (10:39)
[2020-07-26] MEDS: LORAZEPAM INJ 2 MG/ML VIAL IV PRN ×2 (17:15→22:38)
[2020-07-27] VITALS (25 sets, daily range): BP systolic 96–130; BP diastolic 61–88
[2020-07-27] MEDS: PROPOFOL IV EMULSION 10MG/ML 100 ML IV SCH ×4 (00:29→22:03)
[2020-07-27 05:39] LABS: BASOPHILS # (AUTO) 0.1 (0.0-0.1); BASOPHILS % 0.6 % (0.0-1.0); EOSINOPHILS # (AUTO) 0.2 (0.0-0.4); EOSINOPHILS % 2.7 % (0.0-6.0); LYMPHOCYTES # (AUTO) 1.8 (1.0-3.2); LYMPHOCYTES % 23.3 % (18.0-39.1); MEAN CORPUSCULAR HEMOGLOBIN 28.8 pg (28-32); MEAN CORPUSCULAR HGB CONC 31.3 g/dL (31-35); MEAN CORPUSCULAR VOLUME 92.2 fL (81-99); MONOCYTES % 13.2 % (4.4-11.3); NEUTROPHILS # (AUTO) 4.6 (2.1-6.9); PLATELET COUNT 376 x10e3/uL (140-360); RED BLOOD COUNT 3.47 x10e6/uL (3.6-5.1); RED CELL DISTRIBUTION WIDTH 14.6 % (11.7-14.4)
[2020-07-27 05:54] LABS: ALANINE AMINOTRANSFERASE 29 IU/L (0-55); ALBUMIN/GLOBULIN RATIO 0.8 (0.8-2.0); ALKALINE PHOSPHATASE 66 IU/L (40-150); ANION GAP 16.7 mmol/L (8-16); BLOOD UREA NITROGEN 18 mg/dL (7-26); BUN/CREATININE RATIO 38 (6-25); CALCIUM 8.8 mg/dL (8.4-10.2); CARBON DIOXIDE 25 mmol/L (22-29); CHLORIDE 105 mmol/L (98-107); CREATININE, SERUM 0.48 mg/dL (0.57-1.11); EST GLOMERULAR FILTRATION RATE > 60 ML/MIN (60-); GLUCOSE 109 mg/dL (74-118); POTASSIUM 3.7 mmol/L (3.5-5.1); SODIUM 143 mmol/L (136-145)
[2020-07-27] MEDS: INSULIN REGULAR, HUMAN 100 UNIT/1 ML 3ML VIAL SQ SCH ×5 (06:00→23:36)
[2020-07-27] MEDS ORDERED: SENNA-S TABLET PO PRN (07:45)
[2020-07-27] MEDS ORDERED: DOCUSATE SODIUM LIQD 100 MG/10 ML UDC NG PRN (07:45)
[2020-07-27] MEDS: ENOXAPARIN INJ 80 MG/0.8 ML SYR SC SCH ×2 (08:28→20:47)
[2020-07-27] MEDS: LORAZEPAM 0.5 MG TAB PO PRN (08:28)
[2020-07-27] MEDS: BALSAM PERU/CASTOR OIL 60 GM OINT...G. TP SCH (08:28)
[2020-07-27] MEDS: FUROSEMIDE 40 MG TAB PO SCH (08:28)
[2020-07-27] MEDS: KCL 20 MEQ PACKET/ ORAL SOLN NG SCH (08:28)
[2020-07-28] VITALS (16 sets, daily range): BP systolic 110–130; BP diastolic 64–82
[2020-07-28] MEDS: PROPOFOL IV EMULSION 10MG/ML 100 ML IV SCH (02:09)
[2020-07-28] MEDS: LORAZEPAM 0.5 MG TAB PO PRN ×3 (02:46→14:32)
[2020-07-28 04:42] LABS: BASOPHILS % 0.4 % (0.0-1.0); EOSINOPHILS # (AUTO) 0.1 (0.0-0.4); EOSINOPHILS % 1.9 % (0.0-6.0); HEMATOCRIT 33.2 % (34.2-44.1); HEMOGLOBIN 10.3 g/dL (12.0-16.0); LYMPHOCYTES # (AUTO) 1.7 (1.0-3.2); LYMPHOCYTES % 24.6 % (18.0-39.1); MEAN CORPUSCULAR HEMOGLOBIN 28.5 pg (28-32); MONOCYTES % 13.9 % (4.4-11.3); NEUTROPHILS % 57.5 % (38.7-80.0); PLATELET COUNT 360 x10e3/uL (140-360); RED BLOOD COUNT 3.61 x10e6/uL (3.6-5.1); RED CELL DISTRIBUTION WIDTH 14.7 % (11.7-14.4)
[2020-07-28 05:08] LABS: ALANINE AMINOTRANSFERASE 31 IU/L (0-55); ALBUMIN 3.1 g/dL (3.5-5.0); ALBUMIN/GLOBULIN RATIO 0.9 (0.8-2.0); ALKALINE PHOSPHATASE 68 IU/L (40-150); ANION GAP 15.6 mmol/L (8-16); BLOOD UREA NITROGEN 17 mg/dL (7-26); BUN/CREATININE RATIO 35 (6-25); CALCIUM 8.8 mg/dL (8.4-10.2); CARBON DIOXIDE 28 mmol/L (22-29); CHLORIDE 102 mmol/L (98-107); CREATININE, SERUM 0.48 mg/dL (0.57-1.11); EST GLOMERULAR FILTRATION RATE > 60 ML/MIN (60-); GLUCOSE 116 mg/dL (74-118); POTASSIUM 3.6 mmol/L (3.5-5.1); SODIUM 142 mmol/L (136-145)
[2020-07-28] MEDS: INSULIN REGULAR, HUMAN 100 UNIT/1 ML 3ML VIAL SQ SCH ×2 (05:47→12:15)
[2020-07-28] MEDS: FUROSEMIDE 40 MG TAB PO SCH (08:22)
[2020-07-28] MEDS: BALSAM PERU/CASTOR OIL 60 GM OINT...G. TP SCH (08:22)
[2020-07-28] MEDS: KCL 20 MEQ PACKET/ ORAL SOLN NG SCH (08:22)
[2020-07-28] MEDS: ENOXAPARIN INJ 80 MG/0.8 ML SYR SC SCH ×2 (08:22→22:05)
[2020-07-29] VITALS (25 sets, daily range): BP systolic 102–127; BP diastolic 61–109
[2020-07-29] MEDS: IBUPROFEN 100 MG/5 ML SUSP PO PRN (06:30)
[2020-07-29] MEDS: ALTEPLASE RECOMBINANT 2 MG/2 ML VIAL IV PRN (07:10)
[2020-07-29 07:21] LABS: BASOPHILS # (AUTO) 0.1 (0.0-0.1); BASOPHILS % 0.7 % (0.0-1.0); EOSINOPHILS # (AUTO) 0.1 (0.0-0.4); EOSINOPHILS % 1.7 % (0.0-6.0); HEMATOCRIT 38.1 % (34.2-44.1); HEMOGLOBIN 12.1 g/dL (12.0-16.0); LYMPHOCYTES # (AUTO) 1.6 (1.0-3.2); LYMPHOCYTES % 22.7 % (18.0-39.1); MEAN CORPUSCULAR HEMOGLOBIN 29.2 pg (28-32); MEAN CORPUSCULAR HGB CONC 31.8 g/dL (31-35); MEAN CORPUSCULAR VOLUME 91.8 fL (81-99); NEUTROPHILS # (AUTO) 4.2 (2.1-6.9); NEUTROPHILS % 59.4 % (38.7-80.0); PLATELET COUNT 304 x10e3/uL (140-360); RED BLOOD COUNT 4.15 x10e6/uL (3.6-5.1); RED CELL DISTRIBUTION WIDTH 15.1 % (11.7-14.4)
[2020-07-29 07:36] LABS: ALANINE AMINOTRANSFERASE 40 IU/L (0-55); ALBUMIN 3.2 g/dL (3.5-5.0); ALBUMIN/GLOBULIN RATIO 0.8 (0.8-2.0); ALKALINE PHOSPHATASE 71 IU/L (40-150); ANION GAP 15.1 mmol/L (8-16); BLOOD UREA NITROGEN 18 mg/dL (7-26); BUN/CREATININE RATIO 35 (6-25); CARBON DIOXIDE 28 mmol/L (22-29); CHLORIDE 101 mmol/L (98-107); CREATININE, SERUM 0.52 mg/dL (0.57-1.11); EST GLOMERULAR FILTRATION RATE > 60 ML/MIN (60-); GLUCOSE 125 mg/dL (74-118); POTASSIUM 4.1 mmol/L (3.5-5.1); SODIUM 140 mmol/L (136-145)
[2020-07-29] MEDS: ENOXAPARIN INJ 80 MG/0.8 ML SYR SC SCH ×2 (08:18→20:21)
[2020-07-29] MEDS: KCL 20 MEQ PACKET/ ORAL SOLN NG SCH (08:18)
[2020-07-29] MEDS: FUROSEMIDE 40 MG TAB PO SCH (08:18)
[2020-07-29] MEDS: BALSAM PERU/CASTOR OIL 60 GM OINT...G. TP SCH (08:18)
[2020-07-29] MEDS: LORAZEPAM 0.5 MG TAB PO PRN (12:51)
[2020-07-29] MEDS: ACETAMINOPHEN 325 MG/10 ML UDC NG PRN (20:21)
[2020-07-30] VITALS (25 sets, daily range): BP systolic 83–150; BP diastolic 55–89
[2020-07-30] MEDS: ACETAMINOPHEN 325 MG/10 ML UDC NG PRN ×2 (00:17→05:36)
[2020-07-30 05:18] LABS: BASOPHILS % 0.6 % (0.0-1.0); EOSINOPHILS # (AUTO) 0.2 (0.0-0.4); EOSINOPHILS % 2.6 % (0.0-6.0); HEMATOCRIT 34.8 % (34.2-44.1); LYMPHOCYTES # (AUTO) 1.5 (1.0-3.2); LYMPHOCYTES % 24.6 % (18.0-39.1); MEAN CORPUSCULAR HEMOGLOBIN 28.6 pg (28-32); MEAN CORPUSCULAR VOLUME 92.1 fL (81-99); MONOCYTES # (AUTO) 0.9 (0.2-0.8); MONOCYTES % 13.9 % (4.4-11.3); NEUTROPHILS # (AUTO) 3.6 (2.1-6.9); NEUTROPHILS % 56.7 % (38.7-80.0); PLATELET COUNT 309 x10e3/uL (140-360); RED BLOOD COUNT 3.78 x10e6/uL (3.6-5.1); RED CELL DISTRIBUTION WIDTH 14.8 % (11.7-14.4)
[2020-07-30 05:45] LABS: ANION GAP 14.8 mmol/L (8-16); BLOOD UREA NITROGEN 21 mg/dL (7-26); BUN/CREATININE RATIO 43 (6-25); CALCIUM 8.9 mg/dL (8.4-10.2); CARBON DIOXIDE 29 mmol/L (22-29); CHLORIDE 101 mmol/L (98-107); CREATININE, SERUM 0.49 mg/dL (0.57-1.11); EST GLOMERULAR FILTRATION RATE > 60 ML/MIN (60-); GLUCOSE 107 mg/dL (74-118); POTASSIUM 3.8 mmol/L (3.5-5.1); SODIUM 141 mmol/L (136-145)
[2020-07-30 06:26] LABS: HEMOGLOBIN 10.8 g/dL (12.0-16.0)
[2020-07-30] MEDS: KCL 20 MEQ PACKET/ ORAL SOLN NG SCH (08:02)
[2020-07-30] MEDS: BALSAM PERU/CASTOR OIL 60 GM OINT...G. TP SCH (08:02)
[2020-07-30] MEDS: ENOXAPARIN INJ 80 MG/0.8 ML SYR SC SCH ×2 (08:02→20:45)
[2020-07-30] MEDS: FUROSEMIDE 40 MG TAB PO SCH (08:02)
[2020-07-30] MEDS: ACETAMINOPHEN/CODEINE 300MG - 30MG TAB PO PRN (12:28)
[2020-07-30] MEDS: LORAZEPAM 0.5 MG TAB PO PRN ×2 (16:10→21:55)
[2020-07-30] MEDS: PREGABALIN 75 MG CAP PO SCH (17:11)
[2020-07-31] VITALS (25 sets, daily range): BP systolic 103–126; BP diastolic 65–90
[2020-07-31] MEDS: ACETAMINOPHEN/CODEINE 300MG - 30MG TAB PO PRN (00:33)
[2020-07-31 05:58] LABS: BASOPHILS % 0.5 % (0.0-1.0); EOSINOPHILS # (AUTO) 0.2 (0.0-0.4); HEMATOCRIT 35.2 % (34.2-44.1); HEMOGLOBIN 11.2 g/dL (12.0-16.0); LYMPHOCYTES # (AUTO) 1.9 (1.0-3.2); LYMPHOCYTES % 21.4 % (18.0-39.1); MEAN CORPUSCULAR HEMOGLOBIN 29.1 pg (28-32); MEAN CORPUSCULAR HGB CONC 31.8 g/dL (31-35); MEAN CORPUSCULAR VOLUME 91.4 fL (81-99); MONOCYTES # (AUTO) 1.2 (0.2-0.8); NEUTROPHILS # (AUTO) 5.3 (2.1-6.9); NEUTROPHILS % 61.1 % (38.7-80.0); PLATELET COUNT 294 x10e3/uL (140-360); RED BLOOD COUNT 3.85 x10e6/uL (3.6-5.1); RED CELL DISTRIBUTION WIDTH 15.2 % (11.7-14.4)
[2020-07-31 06:10] LABS: ANION GAP 14.7 mmol/L (8-16); BLOOD UREA NITROGEN 21 mg/dL (7-26); BUN/CREATININE RATIO 39 (6-25); CALCIUM 8.9 mg/dL (8.4-10.2); CARBON DIOXIDE 29 mmol/L (22-29); CHLORIDE 99 mmol/L (98-107); CREATININE, SERUM 0.54 mg/dL (0.57-1.11); EST GLOMERULAR FILTRATION RATE > 60 ML/MIN (60-); GLUCOSE 121 mg/dL (74-118); POTASSIUM 3.7 mmol/L (3.5-5.1); SODIUM 139 mmol/L (136-145)
[2020-07-31] MEDS: LORAZEPAM 0.5 MG TAB PO PRN ×2 (06:52→20:00)
[2020-07-31] MEDS: ACETAMINOPHEN 325 MG/10 ML UDC NG PRN ×2 (06:53→20:00)
[2020-07-31] MEDS ORDERED: SIMETHICONE 80 MG CHEW PO PRN (07:45)
[2020-07-31] MEDS: FUROSEMIDE 40 MG TAB PO SCH ×2 (09:00→09:09)
[2020-07-31] MEDS: KCL 20 MEQ PACKET/ ORAL SOLN NG SCH ×2 (09:00→09:09)
[2020-07-31] MEDS: BALSAM PERU/CASTOR OIL 60 GM OINT...G. TP SCH (09:00)
[2020-07-31] MEDS: ENOXAPARIN INJ 80 MG/0.8 ML SYR SC SCH ×2 (09:09→21:37)
[2020-07-31] MEDS: PREGABALIN 75 MG CAP PO SCH ×2 (09:09→16:45)
[2020-07-31] MEDS ORDERED: DIATRIZOATE MEGL/DIATRIZOA SOD 30 ML BTL PO ONE (10:24)
[2020-07-31] MEDS ORDERED: IOPAMIDOL 370 MG/ML 200 ML INFUS..BTL INJ ONE (15:01)
[2020-07-31] MEDS ORDERED: SODIUM CHLORIDE 0.9% 50ML 50 ML ONE (15:01)
[2020-07-31] MEDS ORDERED: MIDAZOLAM HCL 2 MG/2 ML VIAL ONE (18:02)
[2020-07-31] MEDS ORDERED: FENTANYL CITRATE/PF 100MCG/2 ML INJ ONE (18:02)
[2020-07-31] MEDS ORDERED: CLINDAMYCIN PHOS 900MG/ 50ML 50 ML IV SCH (19:00)
[2020-07-31] MEDS: CLINDAMYCIN PHOS 900MG/ 50ML 50 ML IV SCH (20:00)
[2020-08-01] VITALS (25 sets, daily range): BP systolic 108–139; BP diastolic 73–96
[2020-08-01] MEDS: CLINDAMYCIN PHOS 900MG/ 50ML 50 ML IV SCH ×2 (04:25→12:05)
[2020-08-01 06:49] LABS: BASOPHILS % 0.4 % (0.0-1.0); EOSINOPHILS # (AUTO) 0.1 (0.0-0.4); EOSINOPHILS % 1.3 % (0.0-6.0); HEMATOCRIT 34.8 % (34.2-44.1); HEMOGLOBIN 10.9 g/dL (12.0-16.0); LYMPHOCYTES # (AUTO) 1.7 (1.0-3.2); MEAN CORPUSCULAR HEMOGLOBIN 28.8 pg (28-32); MEAN CORPUSCULAR HGB CONC 31.3 g/dL (31-35); MEAN CORPUSCULAR VOLUME 92.1 fL (81-99); MONOCYTES # (AUTO) 1.5 (0.2-0.8); NEUTROPHILS # (AUTO) 7.3 (2.1-6.9); NEUTROPHILS % 67.3 % (38.7-80.0); PLATELET COUNT 268 x10e3/uL (140-360); RED BLOOD COUNT 3.78 x10e6/uL (3.6-5.1); RED CELL DISTRIBUTION WIDTH 15.4 % (11.7-14.4)
[2020-08-01 07:21] LABS: ALANINE AMINOTRANSFERASE 103 IU/L (0-55); ALBUMIN 3.3 g/dL (3.5-5.0); ALBUMIN/GLOBULIN RATIO 0.9 (0.8-2.0); ALKALINE PHOSPHATASE 112 IU/L (40-150); ANION GAP 15.6 mmol/L (8-16); BLOOD UREA NITROGEN 21 mg/dL (7-26); BUN/CREATININE RATIO 42 (6-25); CALCIUM 8.9 mg/dL (8.4-10.2); CARBON DIOXIDE 29 mmol/L (22-29); CHLORIDE 99 mmol/L (98-107); EST GLOMERULAR FILTRATION RATE > 60 ML/MIN (60-); GLUCOSE 135 mg/dL (74-118); POTASSIUM 3.6 mmol/L (3.5-5.1); SODIUM 140 mmol/L (136-145)
[2020-08-01] MEDS: LORAZEPAM 0.5 MG TAB PO PRN ×2 (08:00→20:05)
[2020-08-01] MEDS: ENOXAPARIN INJ 80 MG/0.8 ML SYR SC SCH ×2 (08:59→21:09)
[2020-08-01] MEDS: PREGABALIN 75 MG CAP PO SCH ×2 (08:59→17:27)
[2020-08-01] MEDS: FUROSEMIDE 40 MG TAB PO SCH (08:59)
[2020-08-01] MEDS: KCL 20 MEQ PACKET/ ORAL SOLN NG SCH (08:59)
[2020-08-01] MEDS: ACETAMINOPHEN/CODEINE 300MG - 30MG TAB PO PRN (09:00)
[2020-08-01] MEDS: BALSAM PERU/CASTOR OIL 60 GM OINT...G. TP SCH (09:01)
[2020-08-01] MEDS: ACETAMINOPHEN 325 MG/10 ML UDC NG PRN ×2 (15:28→20:05)
[2020-08-01] MEDS ORDERED: LORAZEPAM INJ 2 MG/ML VIAL IV ONE (15:30)
[2020-08-02] VITALS (17 sets, daily range): BP systolic 85–124; BP diastolic 64–108
[2020-08-02] MEDS: LORAZEPAM 0.5 MG TAB PO PRN ×3 (00:23→20:00)
[2020-08-02] MEDS: ACETAMINOPHEN/CODEINE 300MG - 30MG TAB PO PRN (00:24)
[2020-08-02] MEDS: ACETAMINOPHEN 325 MG/10 ML UDC NG PRN ×2 (04:30→20:00)
[2020-08-02 07:34] LABS: BASOPHILS % 0.5 % (0.0-1.0); EOSINOPHILS # (AUTO) 0.2 (0.0-0.4); EOSINOPHILS % 2.1 % (0.0-6.0); HEMATOCRIT 35.3 % (34.2-44.1); HEMOGLOBIN 11.3 g/dL (12.0-16.0); LYMPHOCYTES # (AUTO) 1.6 (1.0-3.2); LYMPHOCYTES % 19.3 % (18.0-39.1); MEAN CORPUSCULAR HEMOGLOBIN 29.1 pg (28-32); MONOCYTES % 11.9 % (4.4-11.3); NEUTROPHILS # (AUTO) 5.4 (2.1-6.9); NEUTROPHILS % 65.2 % (38.7-80.0); PLATELET COUNT 260 x10e3/uL (140-360); RED BLOOD COUNT 3.88 x10e6/uL (3.6-5.1); RED CELL DISTRIBUTION WIDTH 15.4 % (11.7-14.4)
[2020-08-02 08:00] LABS: ALANINE AMINOTRANSFERASE 137 IU/L (0-55); ALBUMIN 3.2 g/dL (3.5-5.0); ALBUMIN/GLOBULIN RATIO 0.8 (0.8-2.0); ALKALINE PHOSPHATASE 130 IU/L (40-150); ANION GAP 15.6 mmol/L (8-16); BLOOD UREA NITROGEN 21 mg/dL (7-26); BUN/CREATININE RATIO 41 (6-25); CARBON DIOXIDE 27 mmol/L (22-29); CHLORIDE 97 mmol/L (98-107); CREATININE, SERUM 0.51 mg/dL (0.57-1.11); EST GLOMERULAR FILTRATION RATE > 60 ML/MIN (60-); GLUCOSE 135 mg/dL (74-118); POTASSIUM 3.6 mmol/L (3.5-5.1); SODIUM 136 mmol/L (136-145)
[2020-08-02] MEDS: FUROSEMIDE 40 MG TAB PO SCH (09:44)
[2020-08-02] MEDS: KCL 20 MEQ PACKET/ ORAL SOLN NG SCH (09:44)
[2020-08-02] MEDS: ENOXAPARIN INJ 80 MG/0.8 ML SYR SC SCH ×2 (09:45→21:00)
[2020-08-02] MEDS: PREGABALIN 75 MG CAP PO SCH ×2 (09:45→16:35)
[2020-08-02] MEDS: BALSAM PERU/CASTOR OIL 60 GM OINT...G. TP SCH (10:00)
[2020-08-02] MEDS: FAMOTIDINE 20 MG TAB GT SCH (16:35)
[2020-08-03] VITALS (18 sets, daily range): BP systolic 111–133; BP diastolic 42–88
[2020-08-03] MEDS: ACETAMINOPHEN/CODEINE 300MG - 30MG TAB PO PRN ×2 (01:30→13:43)
[2020-08-03] MEDS: LORAZEPAM 0.5 MG TAB PO PRN (01:30)
[2020-08-03] MEDS: ALTEPLASE RECOMBINANT 2 MG/2 ML VIAL IV PRN (05:13)
[2020-08-03 06:43] LABS: BASOPHILS % 0.5 % (0.0-1.0); EOSINOPHILS # (AUTO) 0.2 (0.0-0.4); EOSINOPHILS % 2.5 % (0.0-6.0); HEMATOCRIT 32.6 % (34.2-44.1); HEMOGLOBIN 10.4 g/dL (12.0-16.0); LYMPHOCYTES # (AUTO) 1.9 (1.0-3.2); LYMPHOCYTES % 23.3 % (18.0-39.1); MEAN CORPUSCULAR HGB CONC 31.9 g/dL (31-35); MEAN CORPUSCULAR VOLUME 90.8 fL (81-99); MONOCYTES % 12.1 % (4.4-11.3); NEUTROPHILS # (AUTO) 4.8 (2.1-6.9); NEUTROPHILS % 60.1 % (38.7-80.0); PLATELET COUNT 270 x10e3/uL (140-360); RED BLOOD COUNT 3.59 x10e6/uL (3.6-5.1); RED CELL DISTRIBUTION WIDTH 15.1 % (11.7-14.4)
[2020-08-03 07:11] LABS: ALANINE AMINOTRANSFERASE 88 IU/L (0-55); ALBUMIN/GLOBULIN RATIO 0.8 (0.8-2.0); ALKALINE PHOSPHATASE 104 IU/L (40-150); ANION GAP 14.3 mmol/L (8-16); BLOOD UREA NITROGEN 14 mg/dL (7-26); BUN/CREATININE RATIO 27 (6-25); CALCIUM 8.8 mg/dL (8.4-10.2); CARBON DIOXIDE 26 mmol/L (22-29); CHLORIDE 100 mmol/L (98-107); CREATININE, SERUM 0.51 mg/dL (0.57-1.11); EST GLOMERULAR FILTRATION RATE > 60 ML/MIN (60-); GLUCOSE 141 mg/dL (74-118); POTASSIUM 3.3 mmol/L (3.5-5.1); SODIUM 137 mmol/L (136-145)
[2020-08-03] MEDS: FAMOTIDINE 20 MG TAB GT SCH ×2 (08:31→16:07)
[2020-08-03] MEDS: ENOXAPARIN INJ 80 MG/0.8 ML SYR SC SCH (08:31)
[2020-08-03] MEDS: KCL 20 MEQ PACKET/ ORAL SOLN NG SCH (08:31)
[2020-08-03] MEDS: PREGABALIN 75 MG CAP PO SCH ×2 (08:31→16:07)
[2020-08-03] MEDS: FUROSEMIDE 40 MG TAB PO SCH (08:31)
[2020-08-03] MEDS: BALSAM PERU/CASTOR OIL 60 GM OINT...G. TP SCH (08:31)
== END 2020-08-03 18:21 | DRG 4 ==
LOC: ER 21:40 → ERHOLD 06-21 02:52 → IMCU 06-21 04:05 → COVIDICU 06-22 11:00 → ICU 07-02 22:09
PROVIDERS: ADMIT Internal Medicine; ATTEND Internal Medicine
PROC: XW043E5 Introduction of Remdesivir Anti-infective into Central Vein, Percutaneous Approach, New Technology Group 5 (ICD-10-PCS; 2020-06-21)
PROC: 8E0ZXY6 Isolation (ICD-10-PCS; 2020-06-21)
PROC: 02HV33Z Insertion of Infusion Device into Superior Vena Cava, Percutaneous Approach (ICD-10-PCS; 2020-06-22)
PROC: 03HY32Z Insertion of Monitoring Device into Upper Artery, Percutaneous Approach (ICD-10-PCS; 2020-06-27)
PROC: 5A1955Z Respiratory Ventilation, Greater than 96 Consecutive Hours (ICD-10-PCS; principal; 2020-07-05)
PROC: 0BH18EZ Insertion of Endotracheal Airway into Trachea, Via Natural or Artificial Opening Endoscopic (ICD-10-PCS; 2020-07-05)
PROC: 02HV33Z Insertion of Infusion Device into Superior Vena Cava, Percutaneous Approach (ICD-10-PCS; 2020-07-16)
PROC: 0B113F4 Bypass Trachea to Cutaneous with Tracheostomy Device, Percutaneous Approach (ICD-10-PCS; 2020-07-21)
PROC: 0DH63UZ Insertion of Feeding Device into Stomach, Percutaneous Approach (ICD-10-PCS; 2020-07-31)
DX: U07.1 COVID-19 (principal); J12.9 Viral pneumonia, unspecified; J96.21 Acute and chronic respiratory failure with hypoxia; Z68.44 Body mass index [BMI] 60.0-69.9, adult; B19.9 Unspecified viral hepatitis without hepatic coma; E44.0 Moderate protein-calorie malnutrition; E66.2 Morbid (severe) obesity with alveolar hypoventilation; E87.1 Hypo-osmolality and hyponatremia; E87.3 Alkalosis; G62.81 Critical illness polyneuropathy; B17.8 Other specified acute viral hepatitis; E87.0 Hyperosmolality and hypernatremia; E66.01 Morbid (severe) obesity due to excess calories; G47.33 Obstructive sleep apnea (adult) (pediatric); J45.909 Unspecified asthma, uncomplicated; E87.6 Hypokalemia; E87.70 Fluid overload, unspecified; D63.8 Anemia in other chronic diseases classified elsewhere; Z74.09 Other reduced mobility; L89.156 Pressure-induced deep tissue damage of sacral region; L89.896 Pressure-induced deep tissue damage of other site; L89.026 Pressure-induced deep tissue damage of left elbow
CPT/HCPCS: 36415; 36569; 36600; 43246; 70450; 71045; 71250; 74018; 74177; 74230; 80048; 80053; 81001; 82550; 82553; 82805; 82948; 83036; 83735; 84100; 84484; 84702; 85025; 85610; 87040; 87493; 93005; 94002; 94003; 94660; 97139; 99251; 99284; J0330; J0456; J1100; J1650; J1817; J1940; J2001; J2020; J2060; J2250; J2405; J2765; J2920; J2997; J3010; J3370; J3480; J7030; J7050; P9047; Q9967; U0002

== ENCOUNTER 2022-07-18 06:39 | Emergency (ER) | payer BC ==
[~2022-07-18] VITALS: Ht 157.5 cm; Wt 154.2 kg
[2022-07-18] MEDS ORDERED: MUCINEX DM ER1 EACH PO (08:18)
[2022-07-18] MEDS ORDERED: DEXAMETHASONE SOD PHOS 10 MG/1 ML VIAL IV ONE (08:30)
== END 2022-07-18 08:23 | disposition home or self-care (01) ==
LOC: ER 06:47
DX: R06.00 Dyspnea, unspecified (principal); J02.9 Acute pharyngitis, unspecified; R05.9 Cough, unspecified; Z20.822 Contact with and (suspected) exposure to COVID-19
CPT/HCPCS: 71045; 83518; 87070; 99283; J1100; U0002